=== PATIENT | female | born 1995 | race Caucasian/White ===

== ENCOUNTER 2016-11-16 23:10 | Emergency (ER) | payer MEDICAID, OTHER ==
[2016-11-17 00:27] LABS: ALT 8 U/L (7-52); AST 18 U/L (13-39); Albumin 3.8 g/dL (3.2-5.2); Alkaline Phosphatase 35 U/L (34-104); Anion Gap 4 mmol/L (2-11); BUN/Creatinine Ratio 8.7 (8-20); Blood Urea Nitrogen 6 mg/dL (6-24); CO2 Carbon Dioxide 23 mmol/L (22-32); Calcium 8.8 mg/dL (8.6-10.3); Chloride 107 mmol/L (101-111); EGFR African American 139.5 (>60); EGFR Non-African American 108.5 (>60); Globulin 3.4 g/dL (2-4); Glucose 92 mg/dL (70-100); Hematocrit 38 % (35-47); Hemoglobin 12.2 g/dl (12.0-16.0); Lipase 47 U/L (11.0-82.0); Mean Corpuscular HGB Conc 32 g/dl (31-36); Mean Corpuscular Hemoglobin 26 pg (27-31); Mean Corpuscular Volume 81 fL (80-97); Mean Platelet Volume 9 um3 (7.4-10.4); Potassium 3.8 mmol/L (3.5-5.0); Red Cell Distribution Width 16 % (10.5-15); Sodium 134 mmol/L (133-145); Total Protein 7.2 g/dL (6.4-8.9); White Blood Count 6.5 10^3/ul (3.5-10.8)
--- NOTE | 2016-11-17 01:03 | ED ---
GI/ HPI - HPI Summary HPI Summary: 21F presents with abdominal pain for two weeks. She states the pain comes and goes. She describes it as internal pain and possible from her uterus. She states she has been having intermittent vaginal bleeding. She states her last menstrual period was approximately 2 months ago. States she is on control and switched from the patch to the pill several weeks ago. States she had unprotected sex during her control change. She admits to occasionally nausea. She denies any v/d/c, fever, flank pain, frequency, urgency. She admits to occasionally dysuria. - History of Current Complaint Chief Complaint: EDAbdPain Time Seen by Provider: 11/16/16 23:19 Stated Complaint: ABD PAIN Pain Intensity: 8 - Allergy/Home Medications Allergies/Adverse Reactions: Allergies Allergy/AdvReac Type Severity Reaction Status Date / Time No Known Allergies Allergy Verified 01/14/16 15:17 PMH/Surg Hx/FS Hx/Imm Hx Endocrine/Hematology History: Denies: Hx Anticoagulant Therapy, Hx Diabetes, Hx Thyroid Disease Cardiovascular History: Denies: Hx Congestive Heart Failure, Hx Hypertension, Hx Pacemaker/ICD Respiratory History: Denies: Hx Asthma, Hx Chronic Obstructive Pulmonary Disease (COPD) GI History: Denies: Hx Ulcer History: Denies: Hx Dialysis, Hx Renal Disease Neurological History: Denies: Hx Dementia, Hx Seizures Psychiatric History: Reports: Hx Eating Disorder Denies: Hx Anxiety, Hx Depression, Hx Bipolar Disorder, Hx Substance Abuse Infectious Disease History: No Infectious Disease History: Reports: Hx of Known/Suspected MRSA Denies: Hx Hepatitis, Hx Human Immunodeficiency Virus (HIV), Traveled Outside the [place] in Last 30 Days - Family History Known Family History: Positive: None - Social History Alcohol Use: None Substance Use Type: Reports: None Substance Use Comment - Amount & Last Used: hx of marijuana Smoking Status (MU): Never Smoked Tobacco Have You Smoked in the Last Year: No Review of Systems Negative: Fever Negative: Chest Pain Negative: Shortness Of Breath Positive: Abdominal Pain, Nausea. Negative: Vomiting, Diarrhea Positive: dysuria. Negative: flank pain All Other Systems Reviewed And Are Negative: Yes Physical Exam Triage Information Reviewed: Yes Vital Signs On Initial Exam: Initial Vitals Temp Pulse Resp BP Pulse Ox 98.7 F 70 18 115/57 99 11/16/16 23:45 11/16/16 23:45 11/16/16 23:45 11/16/16 23:45 11/16/16 23:45 Vital Signs Reviewed: Yes Appearance: Positive: Well-Appearing Skin: Positive: Warm, Dry Head/Face: Positive: Normal Head/Face Inspection Eyes: Positive: Normal, Conjunctiva Clear ENT: Positive: Normal ENT inspection, Pharynx normal, TMs normal Respiratory/Lung Sounds: Positive: Clear to Auscultation, Breath Sounds Present Cardiovascular: Positive: Normal, RRR Abdomen Description: Positive: Soft, Other: - mild pelvic tenderness Bowel Sounds: Positive: Present - Bliss Coma Scale Coma Scale Total: 15 Diagnostics - Vital Signs Vital Signs Temp Pulse Resp BP Pulse Ox 11/16/16 23:45 98.7 F 70 18 115/57 99 - Laboratory Lab Results: Lab Results 11/17/16 11/17/16 Range/Units 00:01 00:01 WBC 6.5 (3.5-10.8) 10^3/ul RBC 4.70 (4.0-5.4) 10^6/ul Hgb 12.2 (12.0-16.0) g/dl Hct 38 (35-47) % MCV 81 (80-97) fL MCH 26 L (27-31) pg MCHC 32 (31-36) g/dl RDW 16 H (10.5-15) % Plt Count 255 (150-450) 10^3/ul MPV 9 (7.4-10.4) um3 Neut % (Auto) 52.4 (38-83) % Lymph % (Auto) 38.9 (25-47) % [place] % (Auto) 6.5 (1-9) % Eos % (Auto) 1.2 (0-6) % Baso % (Auto) 1.0 (0-2) % Absolute Neuts (auto) 3.4 (1.5-7.7) 10^3/ul Absolute Lymphs (auto) 2.5 (1.0-4.8) 10^3/ul Absolute Monos (auto) 0.4 (0-0.8) 10^3/ul Absolute Eos (auto) 0.1 (0-0.6) 10^3/ul Absolute Basos (auto) 0.1 (0-0.2) 10^3/ul Absolute Nucleated RBC 0.02 10^3/ul Nucleated RBC % 0.2 Sodium 134 (133-145) mmol/L Potassium 3.8 (3.5-5.0) mmol/L Chloride 107 (101-111) mmol/L Carbon Dioxide 23 (22-32) mmol/L Anion Gap 4 (2-11) mmol/L BUN 6 (6-24) mg/dL Creatinine 0.69 (0.51-0.95) mg/dL Est GFR ( Amer) 139.5 (>60) Est GFR (Non-Af Amer) 108.5 (>60) BUN/Creatinine Ratio 8.7 (8-20) Glucose 92 (70-100) mg/dL Calcium 8.8 (8.6-10.3) mg/dL Total Bilirubin 0.30 (0.2-1.0) mg/dL AST 18 (13-39) U/L ALT 8 (7-52) U/L Alkaline Phosphatase 35 (34-104) U/L C-React Prot High Sens 0.73 mg/L Total Protein 7.2 (6.4-8.9) g/dL Albumin 3.8 (3.2-5.2) g/dL Globulin 3.4 (2-4) g/dL Albumin/Globulin Ratio 1.1 (1-3) Lipase 47 (11.0-82.0) U/L Beta HCG, Quant < 0.60 mIU/mL Result Diagrams: 11/17/16 00:01 11/17/16 00:01 Lab Statement: Any lab studies that have been ordered have been reviewed, and results considered in the medical decision making process. - Ultrasound No standard instances Ultrasound Interpretation: No Acute Changes - normal apperance of uterus endometrium and both ovaries with normal vascular flow seen bilaterally Ultrasound Interpretation Completed By: Radiologist ULISES Course/Dx - Course Course Of Treatment: 21F presents with abdominal pain for two weeks. She states the pain comes and goes. She describes it as internal pain and possible from her uterus. She states she has been having intermittent vaginal bleeding. She states her last menstrual period was approximately 2 months ago. States she is on control and switched from the patch to the pill several weeks ago. States she had unprotected sex during her control change. She admits to occasionally nausea. She denies any v/d/c, fever, flank pain, frequency, urgency. She admits to occasionally dysuria. on exam she has mild pelvic tenderness. labs normal wbc and crp. HCG normal. u/s pelvic normal. no cause for pain except uti? u/a shows bacteria and wbc so due to dysuria symptoms will treat with macrobid for uti. patient understands and agrees with plan. - Diagnoses Differential Diagnoses - Female: Ovarian Cyst, Pyelonephritis, Urinary Tract Infection Provider Diagnoses: Abdominal pain, UTI (urinary tract infection) Discharge - Discharge Plan Condition: Good Disposition: HOME Prescriptions: Nitrofurantoin Monohyd Macro [Macrobid] 100 mg PO BID #13 cap Patient Education Materials: Urinary Tract Infection in Women (ED) Referrals: [facility] [place] [facility] REFERRAL [Outside] David Rockwell MD [Medical Doctor] - Additional Instructions: Take antibiotic twice a day for 7 days, first dose given in ED Take ibuprofen for pain every 6 hours as needed Establish care with primary and obgyn to follow up Return to ED if develop any new or worsening symptoms
[2016-11-17 01:04] LABS: Urine Bacteria 1+ (Absent); Urine Bilirubin Negative (Negative); Urine Glucose Negative (Negative); Urine Nitrite Negative (Negative)
[2016-11-17] MEDS ORDERED: Nitrofurantoin Macrocrystals* 100 MG CAP PO ONE (02:06)
[2016-11-17 02:28] VITALS: BP 122/74
--- NOTE | 2016-11-17 07:44 | RAD ---
HISTORY: Pelvic pain COMPARISONS: May 14, 2015 TECHNIQUE: Multiple transverse and longitudinal ultrasound images were obtained of the pelvis using grayscale and color Doppler imaging using the endovaginal transducer. FINDINGS: UTERUS: The uterus measures 7.8 x 4.2 x 4.8 cm. The uterus is normal in shape, size, contour, and echotexture. ENDOMETRIUM: The endometrial stripe is smooth. The endometrium measures 0.6 cm in thickness. CUL-DE-SAC: There is no free fluid within the cul-de-sac. RIGHT OVARY: The right ovary measures 1.6 x 1.5 x 2.5 cm. Normal arterial and venous waveforms are identifiable within the ovary on spectral Doppler imaging. LEFT OVARY: The left ovary measures 2.3 x 1.9 x 2 cm. Normal arterial and venous waveforms are identifiable within the ovary on spectral Doppler imaging. BLADDER: The bladder is not well visualized. IMPRESSION: UNREMARKABLE ULTRASOUND OF THE PELVIS. NO SONOGRAPHIC FEATURES OF TORSION. PLEASE NOTE THAT PARTIAL OR INTERMITTENT TORSION MAY BE SONOGRAPHICALLY NORMAL.
== END 2016-11-17 02:26 | disposition home or self-care (01) ==
LOC: ED 23:10
DX: N39.0 Urinary tract infection, site not specified (principal); R10.30 Lower abdominal pain, unspecified; Z32.02 Encounter for pregnancy test, result negative
CPT/HCPCS: 36415; 76830; 80053; 81003; 81015; 83690; 84702; 85025; 86141; 87086; 99282; A9270-GY

== ENCOUNTER 2017-04-05 11:46 | Emergency (ER) | payer OTHER ==
[2017-04-05 11:50] VITALS: BP 103/58
[2017-04-05 12:39] LABS: Urine Bacteria 2+ (Absent); Urine Bilirubin Negative (Negative); Urine Glucose Negative (Negative); Urine Nitrite Positive (Negative)
--- NOTE | 2017-04-05 13:00 | ED ---
GI/ HPI - HPI Summary HPI Summary: Pt here w/ intermittent sx x 1 month - worse past few days. Foul smelling urine and increased urination. Has a vaginal d/c but reports it's the same as always - denies vaginal irritation, vaginal pain, pain w/ wiping, etc. No ab pain, no flank pain. Denies fever, chills, N/V/D. H/o UTI. LMP this week - stopped control this month - states hasn't been really sexually active since. - History of Current Complaint Chief Complaint: EDUrogenitalProblems Time Seen by Provider: 04/05/17 12:42 Stated Complaint: POSSIBLE UTI Hx Obtained From: Patient, Family/Paperhanger Pipe - male partner, toddler daughter Pain Intensity: 0 - Allergy/Home Medications Allergies/Adverse Reactions: Allergies Allergy/AdvReac Type Severity Reaction Status Date / Time No Known Allergies Allergy Verified 01/14/16 15:17 PMH/Surg Hx/FS Hx/Imm Hx Previously Healthy: Yes Endocrine/Hematology History: Denies: Hx Anticoagulant Therapy, Hx Diabetes, Hx Thyroid Disease Cardiovascular History: Denies: Hx Congestive Heart Failure, Hx Hypertension, Hx Pacemaker/ICD Respiratory History: Denies: Hx Asthma, Hx Chronic Obstructive Pulmonary Disease (COPD) GI History: Reports: Hx Gastroesophageal Reflux Disease - "years ago" - no problems since Denies: Hx Ulcer History: Denies: Hx Dialysis, Hx Kidney Infection, Hx Kidney Stones, Hx Renal Disease Neurological History: Denies: Hx Dementia, Hx Seizures Psychiatric History: Reports: Hx Eating Disorder Denies: Hx Anxiety, Hx Depression, Hx Bipolar Disorder, Hx Substance Abuse - Immunization History Date of Tetanus Vaccine: unknown Date of Influenza Vaccine: NO Infectious Disease History: Yes Infectious Disease History: Reports: Hx of Known/Suspected MRSA Denies: Hx Hepatitis, Hx Human Immunodeficiency Virus (HIV), Traveled Outside the [place] in Last 30 Days - Family History Known Family History: Positive: None - Social History Occupation: Employed Full-time, Student Lives: With Family Alcohol Use: Rare Hx Substance Use: No Substance Use Type: Reports: None Substance Use Comment - Amount & Last Used: hx of marijuana Hx Tobacco Use: No Smoking Status (MU): Never Smoked Tobacco Have You Smoked in the Last Year: No Review of Systems Constitutional: Negative Negative: Fever, Chills, Fatigue Negative: Sore Throat Cardiovascular: Negative Negative: Palpitations, Chest Pain Respiratory: Negative Negative: Shortness Of Breath, Cough Gastrointestinal: Negative Negative: Abdominal Pain, Vomiting, Diarrhea, Nausea Positive: see HPI Musculoskeletal: Negative Skin: Negative Neurological: Negative Negative: Headache Psychological: Normal All Other Systems Reviewed And Are Negative: Yes Physical Exam Triage Information Reviewed: Yes Vital Signs On Initial Exam: Initial Vitals Temp Pulse Resp BP Pulse Ox 97.5 F 51 16 103/58 97 04/05/17 11:46 04/05/17 11:46 04/05/17 11:46 04/05/17 11:46 04/05/17 11:46 Vital Signs Reviewed: Yes Appearance: Positive: Well-Appearing, No Pain Distress, Well-Nourished Skin: Positive: Warm, Dry Head/Face: Positive: Normal Head/Face Inspection Eyes: Positive: Normal, EOMI, Conjunctiva Clear - anicteric sclera ENT: Positive: Normal ENT inspection, Hearing grossly normal, Pharynx normal - mucosa moist Neck: Positive: Supple Respiratory/Lung Sounds: Positive: Clear to Auscultation, Breath Sounds Present Cardiovascular: Positive: Normal, RRR, S1, S2 Abdomen Description: Positive: No Organomegaly, Soft, Other: - mild suprapubic TTP - triggers sensation to urinate. Negative: CVA Tenderness (R), CVA Tenderness (L) Bowel Sounds: Positive: Present Pelvic Exam: Positive: other - deferred Musculoskeletal: Positive: Normal, Strength/ROM Intact Neurological: Positive: Normal, Sensory/Motor Intact, Alert, Oriented to Person Place, Time, CN Intact II-III Psychiatric: Positive: Normal - James Coma Scale Coma Scale Total: 15 Diagnostics - Vital Signs Vital Signs Temp Pulse Resp BP Pulse Ox 04/05/17 11:46 97.5 F 51 16 103/58 97 - Laboratory Lab Results: Lab Results 04/05/17 Range/Units 12:15 Urine Color Yellow Urine Appearance Cloudy Urine pH 5.0 (5-9) Ur Specific Stout 1.019 (1.010-1.030) Urine Protein Negative (Negative) Urine Ketones Negative (Negative) Urine Blood 1+ H (Negative) Urine Nitrate Positive H (Negative) Urine Bilirubin Negative (Negative) Urine Urobilinogen Negative (Negative) Ur Leukocyte Esterase Trace H (Negative) Urine WBC (Auto) 1+(6-10/hpf) H (Absent) Urine RBC (Auto) Trace(0-2/hpf) (Absent) Urine Bacteria 2+ H (Absent) Urine Glucose Negative (Negative) Lab Statement: Any lab studies that have been ordered have been reviewed, and results considered in the medical decision making process. GIGU Course/Dx - Course Course Of Treatment: Pt presents w/ S/SX of UTI - U/A correlates. If pt's sx do not improve, explained she needs f/u and possibly pelvic exam as this is in diff today. - Diagnoses Provider Diagnoses: UTI (urinary tract infection) Discharge - Discharge Plan Condition: Stable Disposition: HOME Prescriptions: Cephalexin CAP* [Keflex CAP*] 500 mg PO BID #14 cap Patient Education Materials: Urinary Tract Infection in Women (ED) Forms: *Work Release Referrals: [facility] [place] [Outside] No Primary Care Phys,NOPCP [Primary Care Provider] - Additional Instructions: Drink plenty of water Urinate with urge - do not hold urine Urinate after intercourse *If symptoms persist or worsen despite medications or you develop fever, chills , nausea, vomiting, abdominal pain, back pain, vaginal discharge, return to ED
--- NOTE | 2017-04-07 20:28 | PN ---
Progress Note - Progress Note Date of Service: 04/07/17 Note: Patient urine culture grew E coli >100,000. patient placed on keflex which is sensitive to.
--- NOTE | 2017-04-08 12:19 | ED ---
Progress - Progress Note Progress Note: Pt's final urine cx reveals sens to keflex which pt is taking. No change at this time. Course/Dx - Course Course Of Treatment: Pt presents w/ S/SX of UTI - U/A correlates. If pt's sx do not improve, explained she needs f/u and possibly pelvic exam as this is in diff today. - Diagnoses Provider Diagnoses: UTI (urinary tract infection)
== END 2017-04-05 13:05 | disposition home or self-care (01) ==
LOC: ED 11:46
DX: N39.0 Urinary tract infection, site not specified (principal)
CPT/HCPCS: 81003; 81015; 87077; 87086; 87186; 99281

== ENCOUNTER 2017-10-11 06:31 | Emergency (ER) | payer OTHER ==
[2017-10-11] MEDS ORDERED: Simethicone TAB* 80 MG TAB.CHEW PO ONE (08:26)
[2017-10-11 08:30] LABS: ABS Basophils 0 10^3/ul (0-0.2); ABS Eosinophils 0 10^3/ul (0-0.6); ABS Lymphocytes 1.5 10^3/ul (1.0-4.8); ABS Monocytes 0.4 10^3/ul (0-0.8); ABS Neutrophils 5.6 10^3/ul (1.5-7.7); ABS Nucleated RBC 0 10^3/ul; Eosinophil % 0.6 % (0-6); Hematocrit 35 % (35-47); Hemoglobin 11.6 g/dl (12.0-16.0); Lymphocyte % 19.5 % (25-47); Mean Corpuscular HGB Conc 33 g/dl (31-36); Mean Corpuscular Hemoglobin 28 pg (27-31); Mean Corpuscular Volume 82 fL (80-97); Mean Platelet Volume 8.1 um3 (7.4-10.4); Nucleated Red Blood Cells % 0.1; Platelet Count 205 10^3/ul (150-450); Red Blood Count 4.21 10^6/ul (4.00-5.40); Red Cell Distribution Width 15 % (10.5-15); White Blood Count 7.5 10^3/ul (3.5-10.8)
[2017-10-11 08:35] LABS: INR 1.04 (0.77-1.02)
[2017-10-11 08:47] LABS: EGFR Non-African American 187.2 (>60)
--- NOTE | 2017-10-11 08:49 | ED ---
Abdominal Pain/Female - HPI Summary HPI Summary: (1 , 1 miscarriage, 1 live) pt presents w/ lower pelvic cramping and "gas pain". Worse in the central and LLQ regions. She's had this over the past few days and can't flatulate on demand so came in to get checked out. She has relief when she can pass gas. Last BM was Thursday - h/o constipation. Has been eating lots of fruits and vegetables and drinking plenty of water per patient. She is not taking any stool softeners. Also reports she has had some issues with her hemorrhoids. She got these with her first and they are bothering her again with this . She has not tried anything for hemorrhoids. She denies fever, chills, headache, chest pain, shortness of breath, nausea, vomiting, diarrhea, vaginal spotting or bleeding, vaginal pain/ irritation/discharge, urinary frequency/urgency/flank pain/dysuria. She does not feel like she's having any contractions. She is 12 weeks and reports she had an ultrasound 2 weeks ago with [facility] and was told she has a viable . SHe is not taking a vitamin as she was vomiting up until last week - no vomiting since - eating and drinking well. - History of Current Complaint Chief Complaint: EDOBProblems Stated Complaint: 12 WEEKS PREG/CRAMPING Time Seen by Provider: 10/11/17 06:43 Hx Obtained From: Patient, Family/Acquisition Lead - mom Pain Intensity: 7 Allergies/Adverse Reactions: Allergies Allergy/AdvReac Type Severity Reaction Status Date / Time No Known Allergies Allergy Verified 10/11/17 06:36 PMH/Surg Hx/FS Hx/Imm Hx Previously Healthy: Yes Endocrine/Hematology History: Denies: Hx Anticoagulant Therapy, Hx Diabetes, Hx Thyroid Disease Cardiovascular History: Denies: Hx Congestive Heart Failure, Hx Hypertension, Hx Pacemaker/ICD Respiratory History: Denies: Hx Asthma, Hx Chronic Obstructive Pulmonary Disease (COPD) GI History: Reports: Hx Gastroesophageal Reflux Disease - "years ago" - no problems since, Other GI Disorders - hemorrhoids Denies: Hx Ulcer History: Denies: Hx Dialysis, Hx Kidney Infection, Hx Kidney Stones, Hx Renal Disease Neurological History: Denies: Hx Dementia, Hx Seizures Psychiatric History: Reports: Hx Eating Disorder Denies: Hx Anxiety, Hx Depression, Hx Bipolar Disorder, Hx Substance Abuse - Immunization History Date of Tetanus Vaccine: unknown Date of Influenza Vaccine: NO Infectious Disease History: No Infectious Disease History: Reports: Hx of Known/Suspected MRSA Denies: Hx Hepatitis, Hx Human Immunodeficiency Virus (HIV), Traveled Outside the [place] in Last 30 Days - Family History Known Family History: Positive: None - Social History Lives: With Family Alcohol Use: None Hx Substance Use: No Substance Use Type: Reports: None Substance Use Comment - Amount & Last Used: hx of marijuana Hx Tobacco Use: No Smoking Status (MU): Never Smoked Tobacco Have You Smoked in the Last Year: No Review of Systems Constitutional: Negative Cardiovascular: Negative Respiratory: Negative Positive: Abdominal Pain Positive: see HPI Musculoskeletal: Negative Skin: Negative Neurological: Negative Psychological: Normal All Other Systems Reviewed And Are Negative: Yes Physical Exam Triage Information Reviewed: Yes Vital Signs On Initial Exam: Initial Vitals Temp Pulse Resp BP Pulse Ox 98.0 F 64 15 109/64 100 10/11/17 06:33 10/11/17 06:33 10/11/17 06:33 10/11/17 06:33 10/11/17 06:33 Vital Signs Reviewed: Yes Appearance: Positive: Well-Appearing, No Pain Distress, Well-Nourished Skin: Positive: Warm, Skin Color Reflects Adequate Perfusion, Dry Head/Face: Positive: Normal Head/Face Inspection Eyes: Positive: Normal, EOMI, Conjunctiva Clear ENT: Positive: Normal ENT inspection, Hearing grossly normal, Pharynx normal - mucosa moist Neck: Positive: Supple Respiratory/Lung Sounds: Positive: Clear to Auscultation, Breath Sounds Present. Negative: Rales, Rhonchi, Wheezes Cardiovascular: Positive: Normal, RRR, Pulses are Symmetrical in both Upper and Lower Extremities, S1, S2. Negative: Murmur, Rub Abdomen Description: Positive: No Organomegaly, Soft, Distended - ab, Other: - mild TTP over general ab - worse in LLQ - no rebounding. Negative: CVA Tenderness (R), CVA Tenderness (L) Bowel Sounds: Positive: Present, Hyperactive Pelvic Exam: Positive: Other - deferred Musculoskeletal: Positive: Normal, Strength/ROM Intact Neurological: Positive: Normal, Sensory/Motor Intact, Alert, Oriented to Person Place, Time, CN Intact II-III Psychiatric: Positive: Normal Diagnostics - Vital Signs Vital Signs Temp Pulse Resp BP Pulse Ox 10/11/17 06:33 98.0 F 64 15 109/64 100 - Laboratory Lab Results: Lab Results 10/11/17 10/11/17 Range/Units 08:09 08:09 WBC 7.5 (3.5-10.8) 10^3/ul RBC 4.21 (4.00-5.40) 10^6/ul Hgb 11.6 L (12.0-16.0) g/dl Hct 35 (35-47) % MCV 82 (80-97) fL MCH 28 (27-31) pg MCHC 33 (31-36) g/dl RDW 15 (10.5-15) % Plt Count 205 (150-450) 10^3/ul MPV 8.1 (7.4-10.4) um3 Neut % (Auto) 73.8 (38-83) % Lymph % (Auto) 19.5 L (25-47) % [place] % (Auto) 5.8 (0-7) % Eos % (Auto) 0.6 (0-6) % Baso % (Auto) 0.3 (0-2) % Absolute Neuts (auto) 5.6 (1.5-7.7) 10^3/ul Absolute Lymphs (auto) 1.5 (1.0-4.8) 10^3/ul Absolute Monos (auto) 0.4 (0-0.8) 10^3/ul Absolute Eos (auto) 0 (0-0.6) 10^3/ul Absolute Basos (auto) 0 (0-0.2) 10^3/ul Absolute Nucleated RBC 0 10^3/ul Nucleated RBC % 0.1 INR (Anticoag Therapy) 1.04 H (0.77-1.02) Result Diagrams: 10/11/17 08:09 10/11/17 08:09 Lab Statement: Any lab studies that have been ordered have been reviewed, and results considered in the medical decision making process. Abdominal Pain Fem Course/Dx - Course Course Of Treatment: Pt presents w/ "gas pain" at 12 weeks of . Denies any danger signs or symptoms of miscarriage such as spotting, vaginal bleeding, symptoms of contractions however with cramping and left lower quadrant pain, labs and an ultrasound were ordered. Before these tests could be completed, patient reports she is ready to leave. She was given simethicone and told if this helps her gas pain she may continue to take an over-the- counter. Also reviewed options for treating her hemorrhoid such as sitz bath and witch fabrizio wipes. Also encouraged she continued to eat a high-fiber diet however she may also try stool softeners such as Colace to reduce her risk of constipation. Explained that without doing tests we cannot say definitively what could be causing her symptoms or that it safe for her to go home. Patient understands this risk and decides she would like to leave anyway. Her vital signs are stable and she appears comfortable. She initially requested an HIV test but reports she had one 2 weeks ago at her [facility] office and was negative. Explained it is too soon to retest however she should retested 3 months if she has a concern about exposure to HIV. UPDATE: pt's FHR was unattainable by bedside U/S. She became scared and agreed to get U/S - this reveals FHR 149 and normal IUP based on level of testing. Labs correlate w/ findings. Went to pt's room to provide results and she had left. - Diagnoses Provider Diagnoses: Pelvic cramping, Discharge - Sign-Out/Discharge Documenting (check all that apply): Discharge/Admit/Transfer - Discharge Plan Condition: Stable Disposition: HOME Patient Education Materials: Simethicone (By mouth), (ED), Hemorrhoids (ED), Pelvic Pain in Women (ED) Referrals: Betzaida Rodriguez MD [Medical Doctor] - Additional Instructions: The cause of your pain is most likely gas in your bowels that is trapped and causing discomfort. You may try simethicone [id number] (also known as "gas-x") if this helped you today. It is important that if your pain returns or worsens return to the emergency department. If you develop cramping/contractions/vaginal bleeding, contact your [facility] or return to the ED. For your hemorrhoids, it is advised that you try witch fabrizio wipes, stool softeners and sitz baths. Using additional medications could be harmful to the baby - it is important that you avoid anything beyond these recommendations. See handout for additional lifestyle support care. It is also encouraged that you start taking a vitamin since you no longer have vomiting/morning sickness. This will help the development of her growing baby. These may be purchased [id number] or prescribed to your OB/ [facility] if you cannot afford them. - Billing Disposition and Condition Condition: STABLE Disposition: Home
--- NOTE | 2017-10-11 10:12 | RAD ---
HISTORY: lower pelvic cramping, LLQ pain COMPARISONS: None TECHNIQUE: Multiple transverse and longitudinal ultrasound images were obtained of the pelvis using grayscale, color Doppler, and M-Mode Doppler imaging using the transabdominal transducer. FINDINGS: UTERUS: The uterus is normal in shape, size, contour, and echotexture. GESTATION: There is a single live intrauterine gestation. The crown-rump length measures 5.57 cm for a gestational age of 12 weeks, 2 days. The BRANDON is April 23, 2018. cardiac motion is detected at a rate of 149 beats per minute. Gross movement is identified. anatomy cannot be assessed secondary to early dates. The amniotic fluid is qualitatively normal. There is a subchorionic fluid collection measuring approximately 0.8 x 1.8 x 1.7 cm in size. CUL-DE-SAC: There is no free fluid within the cul-de-sac. RIGHT OVARY: The right ovary measures 2.2 x 1.4 x 3.1 cm. LEFT OVARY: The left ovary measures 3 x 1.4 x 3 cm. BLADDER: The visualized bladder is unremarkable. IMPRESSION: 1. SINGLE LIVE INTRAUTERINE GESTATION AT 12 WEEKS, 2 DAYS BY CROWN-RUMP LENGTH. 2. 1.8 CM SUBCHORIONIC HEMORRHAGE.
[2017-10-11 10:39] VITALS: BP 120/76
== END 2017-10-11 10:38 | disposition home or self-care (01) ==
LOC: ED 06:31
DX: O26.891 Other specified pregnancy related conditions, first trimester (principal); O20.9 Hemorrhage in early pregnancy, unspecified; R10.32 Left lower quadrant pain; Z3A.12 12 weeks gestation of pregnancy
CPT/HCPCS: 36415; 76801; 80053; 83690; 84702; 85025; 85610; 99282; A9270-GY

== ENCOUNTER 2017-11-23 13:46 | Emergency (ER) | payer OTHER ==
[2017-11-23 13:54] VITALS: BP 105/62
--- NOTE | 2017-11-23 14:00 | UC ---
Abdominal Pain Female HPI - HPI Summary HPI Summary: This is licha De Santiago documenting for attending Tereza Sewell MD. This patient is a 22 year old F presenting to [facility] accompanied by her mother and step father with a chief complaint of LLQ pain for the last three days. She is currently 18 weeks . The patient rates the pain 8/10 in severity. Pt took OTC Motrin two days ago and has used heat/cold without relief. No vaginal discharge, dysuria, hematuria. She states the pain is worse when she ambulates. Patient reports SALOMON x 2 days.. Patient denies n/v, fever, hematuria, vaginal discharge, dysuria, and abnormal BM. Pt states she did have some blood in her stool yesterday but she has hemorrhoids. Pt states she has "bleeding by placenta." Pt noted to have am ovarian cyst - unsure what size Patients medication reviewed this visit - has vitamins - not taking. - History of Current Complaint Chief Complaint: UCAbdominalPain Stated Complaint: ABD PAIN Time Seen by Provider: 11/23/17 13:52 Hx Obtained From: Patient Onset/Duration: Lasting Days, Still Present Severity Initially: Severe Severity Currently: Severe Pain Intensity: 8 Pain Scale Used: 0-10 Numeric Location: Discrete At: LLQ Radiates: No Aggravating Factor(s): Movement - walking Associated Signs and Symptoms: Positive: Negative - n/v, fever, hematuria, vaginal discharge, dysuria, and abnormal BM., Other: - salomon Allergies/Adverse Reactions: Allergies Allergy/AdvReac Type Severity Reaction Status Date / Time No Known Allergies Allergy Verified 11/23/17 13:54 PMH/Surg Hx/FS Hx/Imm Hx Previously Healthy: Yes Cardiovascular History: Other Other Cardiovascular History: Gastritis GI/ History: Other Other GI/ History: Miscarriage Other History Of: Negative For: Hepatitis B, Anticoagulant Therapy - Surgical History Surgical History: None - Family History Known Family History: Positive: None Negative: Diabetes, Renal Disease, Respiratory Disease, Seizure Disorder, Blood Disorder - Social History Occupation: Employed Full-time - intermediate Lives: With Family Alcohol Use: None Substance Use Type: None Substance Use Comment - Amount & Last Used: hx of marijuana Smoking Status (MU): Never Smoked Tobacco Have You Smoked in the Last Year: No Household Exposure Type: Cigarettes Review of Systems Gastrointestinal: Abdominal Pain Neurological: Headache All Other Systems Reviewed And Are Negative: Yes Physical Exam - Summary Physical Exam Summary: Vital Signs Reviewed: Yes A+Ox3, mild discomfort with ambulation, stepping up onto exam table Eyes: Conjunctiva Clear, DANIELA. EOM intact and full ENT: Hearing grossly normal TM x 2 clear, mmoist, uvula midline, no exudate, no erythema Neck: Positive: Supple Respiratory: Positive: No respiratory distress, No accessory muscle use + CTA throughout no w/r Cardiovascular: RRR nl s1, s2 no m/r CBT <2 sec abd gravid soft +/decrease BS nondistended + TTP RLQ mild LLQ Musculoskeletal Exam: VASQUEZ x 4 without difficulty Strength Intact, ROM Intact RLQ increases with right leg elevation Neurological: Positive: Alert, + sensation throughout Psychological: Positive: Normal Response To Family Skin: Positive: no rash, no ecchymosis Triage Information Reviewed: Yes Vital Signs: Initial Vital Signs Temp 98.2 F 11/23/17 13:51 Pulse 66 11/23/17 13:51 Resp 16 11/23/17 13:51 BP 105/62 11/23/17 13:51 Pulse Ox 100 11/23/17 13:51 Abd Pain Female Course/Dx - Course Course Of Treatment: Patient presents emergency Department with 3 days of progressive lower abdominal pain. Patient's 18 weeks . Patient states she is a little bit of nausea. Patient states pain is worse with movement and ambulation. Patient took Motrin yesterday without relief. Patient did not call her [employer] [employer] [employer] [employer] providers. Patient states she's been UC does not recall for pain. Patient has discomfort right or left lower quadrant. Patient states she does have an ovarian cyst as well as "bleeding by my placenta." Discussed with patient differential. Patient with 1+ leuks in her urine. Recommended patient to emergency department for further evaluation and treatment. Patient and family comfortable and in agreement plan - Differential Dx/Diagnosis Provider Diagnoses: lower quadrant abdominal pain in Discharge - Sign-Out/Discharge Documenting (check all that apply): Patient Departure - Discharge Plan Condition: Stable Disposition: HOME Patient Education Materials: Abdominal Pain in (ED) Forms: *Work Release Referrals: No Primary Care Phys,NOPCP [Primary Care Provider] - Additional Instructions: The doctor that evaluated you recommends you go directly to the emergency department at [facility]. You may require additional testing and evaluation of your abdomen and to determine the cause of your discomfort . The emergency department has been notified you have been referred to them for further treatment. - Billing Disposition and Condition Condition: STABLE Disposition: Home
[2017-11-23] MEDS ORDERED: Acetaminophen TAB* 325 MG PO ONE (14:17)
== END 2017-11-23 14:25 | disposition home or self-care (01) ==
LOC: UCEAST 13:46
DX: O26.892 Other specified pregnancy related conditions, second trimester (principal); O34.82 Maternal care for other abnormalities of pelvic organs, second trimester; R10.30 Lower abdominal pain, unspecified; R11.0 Nausea; N83.209 Unspecified ovarian cyst, unspecified side; Z3A.18 18 weeks gestation of pregnancy
CPT/HCPCS: 81003; 87086; 99212; A9270-GY; G0463

== ENCOUNTER 2017-12-07 17:00 | Emergency (ER) | payer OTHER ==
--- NOTE | 2017-12-07 18:44 | ED ---
Abdominal Pain/Female - HPI Summary HPI Summary: This is scribe Kaden Martin documenting for attending Husam Davis MD. This patient is a 22 year old F presenting to [facility] with a chief complaint of abdominal pain since 03:00 today. She is . Patient reports vomiting yesterday, nausea yesterday, mild cramping, and abdominal pressure. At 16:35 today she went to the bathroom and noted mucous mixed with blood coming out of her vagina. She is 21 weeks . Her LNMP was 07/15/2017. She has no PMHx of PSHx. I, Dr. Davis, personally performed the services described in this documentation as scribed in my presence, and it is both accurate and complete. - History of Current Complaint Chief Complaint: EDOBProblems Stated Complaint: 5MTHS PREG/DISCHARGE Time Seen by Provider: 12/07/17 18:20 Hx Obtained From: Patient Onset/Duration: Sudden Onset, Lasting Hours - Since 03:00 today., Still Present Timing: Constant Severity Initially: Mild Severity Currently: Mild Pain Intensity: 0 Pain Scale Used: 0-10 Numeric Aggravating Factor(s): Nothing Alleviating Factor(s): Nothing Associated Signs and Symptoms: Positive: Vaginal Bleeding - Mucous mixed with blood coming out of vagina 16:35 today., Nausea - yesterday, Vomiting - yesterday, Other: - Mild abdominal cramping, abdominal pressure Allergies/Adverse Reactions: Allergies Allergy/AdvReac Type Severity Reaction Status Date / Time No Known Allergies Allergy Verified 12/07/17 17:15 PMH/Surg Hx/FS Hx/Imm Hx Endocrine/Hematology History: Denies: Hx Anticoagulant Therapy, Hx Diabetes, Hx Thyroid Disease Cardiovascular History: Denies: Hx Congestive Heart Failure, Hx Hypertension, Hx Pacemaker/ICD Respiratory History: Denies: Hx Asthma, Hx Chronic Obstructive Pulmonary Disease (COPD) GI History: Reports: Hx Gastroesophageal Reflux Disease - "years ago" - no problems since, Other GI Disorders - hemorrhoids Denies: Hx Ulcer History: Denies: Hx Dialysis, Hx Kidney Infection, Hx Kidney Stones, Hx Renal Disease Neurological History: Denies: Hx Dementia, Hx Seizures Psychiatric History: Reports: Hx Eating Disorder Denies: Hx Anxiety, Hx Depression, Hx Bipolar Disorder, Hx Substance Abuse - Immunization History Date of Tetanus Vaccine: unknown Date of Influenza Vaccine: NO Infectious Disease History: No Infectious Disease History: Reports: Hx of Known/Suspected MRSA Denies: Hx Hepatitis, Hx Human Immunodeficiency Virus (HIV), Traveled Outside the [place] in Last 30 Days - Family History Known Family History: Negative: Diabetes, Renal Disease, Respiratory Disease, Seizure Disorder, Blood Disorder - Social History Occupation: Student Alcohol Use: None Hx Substance Use: No Substance Use Type: Reports: None Substance Use Comment - Amount & Last Used: hx of marijuana Hx Tobacco Use: No Smoking Status (MU): Never Smoked Tobacco Have You Smoked in the Last Year: No Review of Systems Negative: Fever Positive: Abdominal Pain, Vomiting - Yesterday, Nausea - Yesterday, Other - Abdominal pressure, mild abdominal cramping Positive: other - Mucous mixed with blood coming out of her vagina at 16:35 All Other Systems Reviewed And Are Negative: Yes Physical Exam - Summary Physical Exam Summary: VITAL SIGNS: Reviewed. GENERAL: Patient is a well-developed and nourished (MALE OR FEMALE) who is lying comfortable in the stretcher. Patient is not in any acute respiratory distress. HEAD AND FACE: No signs of trauma. No ecchymosis, hematomas or skull depressions. No sinus tenderness. EYES: PERRLA, EOMI x 2, No injected conjunctiva, no nystagmus. EARS: Hearing grossly intact. Ear canals and tympanic membranes are within normal limits. MOUTH: Oropharynx within normal limits. NECK: Supple, trachea is midline, no adenopathy, no JVD, no carotid bruit, no c- spine tenderness, neck with full ROM. CHEST: Symmetric, no tenderness at palpation LUNGS: Clear to auscultation bilaterally. No wheezing or crackles. CVS: Regular rate and rhythm, S1 and S2 present, no murmurs or gallops appreciated. ABDOMEN: Soft, non-tender. Abdominal distention about the umbilical, consistent with 21 week . No rebound no guarding, and no masses palpated. Bowel sounds are normal. EXTREMITIES: FROM in all major joints, no edema, no cyanosis or clubbing. GENITOURINARY: Vaginal dunlap are normal, no lesions. Some white, cheesy discharge. Cervic is closed, no CMT. NEURO: Alert and oriented x 3. No acute neurological deficits. Speech is normal and follows commands. SKIN: Dry and warm Triage Information Reviewed: Yes Vital Signs On Initial Exam: Initial Vitals Temp Pulse Resp BP Pulse Ox 98.5 F 70 16 123/70 100 12/07/17 17:10 12/07/17 17:10 12/07/17 17:10 12/07/17 17:10 12/07/17 17:10 Vital Signs Reviewed: Yes Diagnostics - Vital Signs Vital Signs Temp Pulse Resp BP Pulse Ox 12/07/17 17:10 98.5 F 70 16 123/70 100 - Laboratory Lab Statement: Any lab studies that have been ordered have been reviewed, and results considered in the medical decision making process. Abdominal Pain Fem Course/Dx - Course Course Of Treatment: This patient is a 22-year-old female who presents to the emergency department with a chief complaint of having some abdominal cramping. She reports that she is 21 weeks , she is . She reports that this morning approximately 03:00 in the morning she developed some abdominal cramping which lasted for a couple minutes and resolved. Today in the afternoon she passed this white discharge when she went to the bathroom. The patient contacted Dr. Feldman from [facility] and she recommended to come to the emergency department for the assessment. In the physical exam the patient has these white cheesy discharge and she also reports that she was given oral antibiotics for her yeast. The external genitalia are within normal limits, the cervix is closed and has these white cheesy discharge. There is no blood seen. At this time I discussed my physical exam, findings and test results with Dr. Glass who believes that the patient is not having any type of miscarriage she believes that she has a yeast infection therefore she recommends for the patient to be given Diflucan 150 mg now and given a prescription for 1 tablet to take in 72 hours. She recommends no blood work and she doesnt recommend a pelvic ultrasound. I discussed all the findings and test results with the patient. Patient was instructed to return to the emergency room immediately if any of the symptoms return or worsens. Plan of care was discussed with the patient and understands and agrees. All questions were answered at patient satisfaction. There were no further complaints or concerns. Lung exam before discharge: CTA B/L. Good air exchange. No wheezing or crackles heard. CVS: S1 and S2 present. No murmurs appreciated. Patient is alert and oriented x 3. Patient is hemodynamically stable. Patient will be discharged home with follow up PCP in the next 2-3 days. FHR 150 - Diagnoses Provider Diagnoses: Vaginal candidiasis - Provider Notifications Discussed Care Of Patient With: Yessi Feldman - [facility] Time Discussed With Above Provider: 18:33 Instructed by Provider To: Other - Treat with ibuprofin for a yeast infection. Discharge - Sign-Out/Discharge Documenting (check all that apply): Patient Departure - Discharge Plan Condition: Stable Disposition: HOME Prescriptions: Fluconazole 150 MG (NF) [Diflucan 150 mg (NF)] 150 mg PO ONCE #1 tab Patient Education Materials: Yeast Infection (ED) Referrals: No Primary Care Phys,NOPCP [Primary Care Provider] - (Follow up with [facility] within 2-3 days.) Additional Instructions: RETURN TO THE ED FOR ANY WORSENING OR NEW SYMPTOMS
[2017-12-07] MEDS ORDERED: Fluconazole 150 MG (NF) 150 MG TAB PO ONE (19:32)
[2017-12-07 20:38] VITALS: BP 119/60
== END 2017-12-07 20:36 | disposition home or self-care (01) ==
LOC: ED 17:00
DX: O98.812 Other maternal infectious and parasitic diseases complicating pregnancy, second trimester (principal); Z3A.21 21 weeks gestation of pregnancy
CPT/HCPCS: 99282

== ENCOUNTER 2018-03-06 22:30 | Emergency (ER) | payer OTHER ==
[2018-03-06 23:27] LABS: Urine Appearance Clear; Urine Blood Negative (Negative); Urine Color Yellow; Urine Ketones Negative (Negative); Urine Protein Negative (Negative); Urine Specific Gravity 1.008 (1.010-1.030); Urine Urobilinogen Negative (Negative)
--- NOTE | 2018-03-06 23:33 | ED ---
Back Pain - HPI Summary HPI Summary: Pt is a 22 year old F presenting to the ED with a chief complaint of back pain. The pt is on her second , 33 wks in. The back pain is horrible and on her R side, onset 2 weeks ago but worse for the last two days. The severity is intermittent. The pt has no hx of back issues, denies nausea or vomiting, and does not take any medications. The pt does not have vaginal bleeding, her baby is kicking, and she last saw her lettuce trimmer 2 months ago. She is also urinating ok. She denied any pain medications. - History of Current Complaint Chief Complaint: EDBackInjuryPain Stated Complaint: 33 WKS PREG/BACK PAIN Time Seen by Provider: 03/06/18 23:08 Hx Obtained From: Patient Onset/Duration: Gradual Onset, Lasting Weeks, Still Present, Worse Since - 2 days ago Onset/Duration: Started Weeks Ago, Still Present, Worse Since - 2 days ago Timing: Constant, Lasting Weeks Back Pain Location: Is Discrete @ - R lower back Severity Initially: Mild Severity Currently: Severe Pain Intensity: 10 Pain Scale Used: 0-10 Numeric Character: Sharp Aggravating Symptom(s): Movement Alleviating Symptom(s): Rest - Allergies/Home Medications Allergies/Adverse Reactions: Allergies Allergy/AdvReac Type Severity Reaction Status Date / Time No Known Allergies Allergy Verified 03/06/18 22:38 PMH/Surg Hx/FS Hx/Imm Hx Previously Healthy: Yes Endocrine/Hematology History: Denies: Hx Anticoagulant Therapy, Hx Diabetes, Hx Thyroid Disease Cardiovascular History: Denies: Hx Congestive Heart Failure, Hx Hypertension, Hx Pacemaker/ICD Respiratory History: Denies: Hx Asthma, Hx Chronic Obstructive Pulmonary Disease (COPD) GI History: Reports: Hx Gastroesophageal Reflux Disease - "years ago" - no problems since, Other GI Disorders - hemorrhoids Denies: Hx Ulcer History: Denies: Hx Dialysis, Hx Kidney Infection, Hx Kidney Stones, Hx Renal Disease Neurological History: Denies: Hx Dementia, Hx Seizures Psychiatric History: Reports: Hx Eating Disorder Denies: Hx Anxiety, Hx Depression, Hx Bipolar Disorder, Hx Substance Abuse - Immunization History Date of Tetanus Vaccine: unknown Date of Influenza Vaccine: NO Infectious Disease History: Yes Infectious Disease History: Reports: Hx of Known/Suspected MRSA Denies: Hx Hepatitis, Hx Human Immunodeficiency Virus (HIV), Traveled Outside the [place] in Last 30 Days - Family History Known Family History: Negative: Diabetes, Renal Disease, Respiratory Disease, Seizure Disorder, Blood Disorder - Social History Alcohol Use: None Hx Substance Use: No Substance Use Type: Reports: None Substance Use Comment - Amount & Last Used: hx of marijuana Hx Tobacco Use: No Smoking Status (MU): Never Smoked Tobacco Have You Smoked in the Last Year: No Review of Systems Negative: Fever Positive: Myalgia - lower R back pain All Other Systems Reviewed And Are Negative: Yes Physical Exam - Summary Physical Exam Summary: VITAL SIGNS: Reviewed. GENERAL: Patient is a well-developed and nourished female who is lying comfortable in the stretcher. Patient is not in any acute respiratory distress. HEAD AND FACE: No signs of trauma. No ecchymosis, hematomas or skull depressions. No sinus tenderness. EYES: PERRLA, EOMI x 2, No injected conjunctiva, no nystagmus. EARS: Hearing grossly intact. Ear canals and tympanic membranes are within normal limits. MOUTH: Oropharynx within normal limits. NECK: Supple, trachea is midline, no adenopathy, no JVD, no carotid bruit, no c- spine tenderness, neck with full ROM. CHEST: Symmetric, no tenderness at palpation LUNGS: Clear to auscultation bilaterally. No wheezing or crackles. CVS: Regular rate and rhythm, S1 and S2 present, no murmurs or gallops appreciated. ABDOMEN: Soft, non-tender. No signs of distention. No rebound no guarding, and no masses palpated. Bowel sounds are normal. Fundal 32 weeks. EXTREMITIES: FROM in all major joints, no edema, no cyanosis or clubbing. Bilateral straight leg test negative. NEURO: Alert and oriented x 3. No acute neurological deficits. Speech is normal and follows commands. SKIN: Dry and warm Triage Information Reviewed: Yes Vital Signs On Initial Exam: Initial Vitals Temp Pulse Resp BP Pulse Ox 98.5 F 70 16 124/60 100 03/06/18 22:32 03/06/18 22:32 03/06/18 22:32 03/06/18 22:32 03/06/18 22:32 Vital Signs Reviewed: Yes Diagnostics - Vital Signs Vital Signs Temp Pulse Resp BP Pulse Ox 03/06/18 22:32 98.5 F 70 16 124/60 100 - Laboratory Lab Results: Lab Results 03/06/18 Range/Units 22:50 Urine Color Yellow Urine Appearance Clear Urine pH 7.0 (5-9) Ur Specific [place] 1.008 L (1.010-1.030) Urine Protein Negative (Negative) Urine Ketones Negative (Negative) Urine Blood Negative (Negative) Urine Nitrate Negative (Negative) Urine Bilirubin Negative (Negative) Urine Urobilinogen Negative (Negative) Ur Leukocyte Esterase Negative (Negative) Urine Glucose Negative (Negative) Urine Ascorbic Acid * A (Negative) Result Diagrams: 03/06/18 23:37 03/06/18 23:37 Lab Statement: Any lab studies that have been ordered have been reviewed, and results considered in the medical decision making process. - Ultrasound No standard instances Ultrasound Interpretation Completed By: Radiologist Summary of Ultrasound Findings: Normal bilateral renal ultrasound. ED physician has reviewed this report. Back Pain Course/Dx - Course Course Of Treatment: Pt is a 22 y/o F presenting to the ED with a chief complaint of back pain. She is 32 weeks and is having a normal . The severity is intermittent, she is concerned it is kidney stones. She denied any pain medication. - Diagnoses Provider Diagnoses: Back pain Discharge - Sign-Out/Discharge Documenting (check all that apply): Patient Departure - Discharge Plan Condition: Stable Disposition: HOME Prescriptions: oxyCODONE/Acetamin 5/325 MG* [Percocet 5/325 TAB*] 1 tab PO Q6H PRN #14 tab MDD 4 PRN Reason: Pain Referrals: [facility]ERR[facility] [Outside] Additional Instructions: RETURN TO THE EMERGENCY DEPARTMENT FOR CHANGING OR WORSENING SYMPTOMS. FOLLOW UP WITH YOUR JEW[facility]ERTER IN ONE DAY. FOLLOW UP WITH PCP IN 1-2 DAYS. - Attestation Statements Document Initiated by Scribe: Yes Documenting Scribe: Laura Newton Provider For Whom Ricco is Documenting (Include Credential): Alejandrina Hagan MD. Scribe Attestation: Laura Dozier, angyed for Alejandrina Hagan MD. on 03/07/18 at 1443. Consult Consult: [id number] - Spoke with Dr. Varela about the pt's condition who approved to run tests to hear heart sounds and make sure the fetus is ok. 0020 - Dr. Varela came to do a strip on the pt. The pt is not having contractions and the fetus is ok. The pt will be sent home with a dx of back pain.
[2018-03-06 23:47] LABS: ABS Basophils 0 10^3/ul (0-0.2); ABS Eosinophils 0.1 10^3/ul (0-0.6); ABS Lymphocytes 1.8 10^3/ul (1.0-4.8); ABS Monocytes 0.8 10^3/ul (0-0.8); ABS Neutrophils 8.6 10^3/ul (1.5-7.7); ABS Nucleated RBC 0 10^3/ul; Eosinophil % 0.5 % (0-6); Hematocrit 30 % (35-47); Hemoglobin 9.8 g/dl (12.0-16.0); Lymphocyte % 16.2 % (25-47); Mean Corpuscular HGB Conc 33 g/dl (31-36); Mean Corpuscular Hemoglobin 27 pg (27-31); Mean Corpuscular Volume 80 fL (80-97); Mean Platelet Volume 8.2 fL (7.4-10.4); Nucleated Red Blood Cells % 0; Platelet Count 194 10^3/ul (150-450); Red Blood Count 3.69 10^6/ul (4.00-5.40); Red Cell Distribution Width 16 % (10.5-15); White Blood Count 11.3 10^3/ul (3.5-10.8)
[2018-03-07 00:06] LABS: EGFR Non-African American 201.5 (>60)
[2018-03-07] MEDS ORDERED: Potassium Chlor TAB* 20 MEQ TAB.ER PO ONE (01:19)
[2018-03-07 01:53] VITALS: BP 124/69
== END 2018-03-07 02:11 | disposition home or self-care (01) ==
LOC: ED 22:30
DX: O26.893 Other specified pregnancy related conditions, third trimester (principal); M54.5 Low back pain; Z3A.32 32 weeks gestation of pregnancy
CPT/HCPCS: 36415; 76775; 80053; 81003; 85025; 99283; A9270-GY

== ENCOUNTER 2018-04-28 04:07 | Inpatient (IN) | payer OTHER ==
[2018-04-28] MEDS ORDERED: Lactated Ringers 1000 ML Bag* 1,000 ML IV ONE ×2 (04:43→05:21)
[2018-04-28] MEDS ORDERED: Lactated Ringers 1000 ML Bag* 1,000 ML IV SCH ×3 (05:00→07:00)
[2018-04-28] MEDS ORDERED: Penicillin G Potassium IV* 5,000,000 UNITS in NS 0.9% 100 ML* 100 ML IVPB ONE (05:00)
[2018-04-28] MEDS ORDERED: OBEPIDURAL* 250 ML EPIDURAL ONE (05:06)
[2018-04-28 05:11] LABS: ABS Basophils 0 10^3/ul (0-0.2); ABS Eosinophils 0.1 10^3/ul (0-0.6); ABS Lymphocytes 2.2 10^3/ul (1.0-4.8); ABS Monocytes 0.8 10^3/ul (0-0.8); ABS Neutrophils 7.7 10^3/ul (1.5-7.7); ABS Nucleated RBC 0 10^3/ul; Eosinophil % 0.5 %; Hematocrit 34 % (35-47); Hemoglobin 11.1 g/dl (12.0-16.0); Lymphocyte % 20.6 %; Mean Corpuscular HGB Conc 33 g/dl (31-36); Mean Corpuscular Hemoglobin 25 pg (27-31); Mean Corpuscular Volume 77 fL (80-97); Mean Platelet Volume 8.5 fL (7.4-10.4); Nucleated Red Blood Cells % 0; Platelet Count 223 10^3/ul (150-450); Red Cell Distribution Width 16 % (10.5-15); White Blood Count 10.8 10^3/ul (3.5-10.8)
[2018-04-28] MEDS ORDERED: Sodium Citrate/Citric Acid* 15 ML UDC PO PRN (05:21)
[2018-04-28] MEDS ORDERED: Famotidine TAB* 20 MG PO PRN (05:21)
[2018-04-28] MEDS ORDERED: Phenylephrine IV* 40 MCG/ML 10 ML SYRINGE IV PUSH PRN (05:21)
[2018-04-28] MEDS ORDERED: EPHEDrine (Pressors)* 50 MG/ML VIAL IV PUSH PRN (05:21)
--- NOTE | 2018-04-28 05:36 | HP ---
<Bryant Costello - Last Filed: 04/28/18 05:54> General Information - Reason for Visit SROM at 0315 to clear fluid, was not martinez initially but by the time she arrived on unit was starting to contract. - General Information Maternal Age: 17 Grav: 3 Para: 1 SAB: 0 IEA: 1 Estimated Due Date: 04/22/18 Determined By: Early Ultrasound Maternal Blood Type and Rh: A Positive - Results this Serology/RPR Result: Non-Reactive Rubella Result: Immune HBsAg Result: Negative HIV Result: Negative GBS Culture Result: Positive Past Medical History Delivery History: Hx Uncomplicated Vaginal Delivery Pertinent Past Medical History: See Records - depression/ anxiety Pertinent Past Surgical History: None Pertinent Family History: Non-Contributory - Antepartal Records Antepartal Records: Reviewed, Uncomplicated Review of Systems Constitutional: Uncomfortable CV Complaint: No Respiratory: Shortness of Breath: No Gastrointestinal: No Nausea/Vomiting, Normal Bowel Movement Genitourinary: Leaking Fluid, No Dysuria, No Bleeding Musculoskeletal: No Epigastric Pain, Contractions Neurological: No Headache, No Visual Changes Movement: Normal Exam Allergies/Adverse Reactions: Allergies No Known Allergies Allergy (Verified 03/06/18 22:38) T-98.1, P-68, R-16, BP-135/90, O2-100%, repeat BP 127/72 Lab Values - Entire Visit: Laboratory Tests 04/28/18 04/28/18 04:50 04:50 WBC 10.8 RBC 4.40 Hgb 11.1 L Hct 34 L MCV 77 L MCH 25 L MCHC 33 RDW 16 H Plt Count 223 MPV 8.5 Neut % (Auto) 70.7 Lymph % (Auto) 20.6 [place] % (Auto) 7.8 Eos % (Auto) 0.5 Baso % (Auto) 0.4 Absolute Neuts (auto) 7.7 Absolute Lymphs (auto) 2.2 Absolute Monos (auto) 0.8 Absolute Eos (auto) 0.1 Absolute Basos (auto) 0 Absolute Nucleated RBC 0 Nucleated RBC % 0 Blood Type A Positive - Measurements Height: 5 ft 2 in Weight: 58.967 kg Body Mass Index (BMI): 23.8 Pre- Weight: 43.998 kg - Exam Breast: Breast Exam Deferred CVA: No CVA Tenderness Extremities: No Edema Heart: Normal Rhythm/Heart Sounds HEENT: No Significant Findings Lungs: Clear Bilaterally Rectal: Rectal Exam Deferred Reflexes: DTR 2+ Thyroid: No Thyromegaly - Abdominal Exam Abdomen Exam: Non-Tender Abdomen Exam Comment: S<D, growth sonos have shown appropriate growth - Ultrasound/Biophysical Profile Ultrasound Status: Not Done Targeted Exam Findings See L&D Outpatient Visit Provider Note for Findings: N/A Estimated Weight: 7# Cervical Exam: 4cm Effacement: 100% Station: +1 Presenting Part: Vertex Membrane Status: SROM Amniotic Fluid Evaluation: Gross Rupture Bleeding/Discharge: None <Tereza Deal - Last Filed: 04/28/18 07:19> General Information - Reason for Visit Above text entered by Tereza Deal CNM - General Information Maternal Age: 22 Exam Vital Signs 04/28/18 06:40 Temperature 98.9 F Lab Values - Entire Visit: Laboratory Tests 04/28/18 04/28/18 04:50 04:50 WBC 10.8 RBC 4.40 Hgb 11.1 L Hct 34 L MCV 77 L MCH 25 L MCHC 33 RDW 16 H Plt Count 223 MPV 8.5 Neut % (Auto) 70.7 Lymph % (Auto) 20.6 [place] % (Auto) 7.8 Eos % (Auto) 0.5 Baso % (Auto) 0.4 Absolute Neuts (auto) 7.7 Absolute Lymphs (auto) 2.2 Absolute Monos (auto) 0.8 Absolute Eos (auto) 0.1 Absolute Basos (auto) 0 Absolute Nucleated RBC 0 Nucleated RBC % 0 Blood Type A Positive Antibody Screen Negative EFM Findings - External Monitor Findings Baseline Heart Rate: 150 External Monitor Findings: Accelerations Present, No Pattern of Variable or Late Decelerations, Variability Moderate, Baseline Stable Contractions: Regular, Strong, 45-90 Seconds Contraction Frequency: 2-3 Assessment/Plan - Assessment at 40 6/7 weeks gestation in active labor with ruptured membranes, GBS positive, no evidence of acidemia - Obstetrical Risk Factors Obstetrical Risk Factors: GBS Positive, Post-Dates - Plan Plan: Admit - Anticipate Vaginal Delivery - Date/Time of Admission Date of Admission: 04/28/18 Time of Admission: 04:34
[2018-04-28] MEDS ORDERED: OBEPIDURAL* 250 ML EPIDURAL SCH (06:00)
[2018-04-28] MEDS ORDERED: Witch Hazel PAD* JAR TOPICAL PRN (06:59)
[2018-04-28] MEDS ORDERED: Glycerin ADULT SUPP PR PRN (06:59)
[2018-04-28] MEDS ORDERED: Dibucaine 1% 28.35 GM TUBE PR PRN (06:59)
--- NOTE | 2018-04-28 07:36 | PROCNOTE ---
[facility] OB: Delivery Note - Delivery A Date of : 04/28/18 Time of : 06:09 [place] Sex: Female Weight at : 2.895 kg Score 1 Minute: 7 Score 5 Minutes: 9 Gestational Age in Weeks and Days at Delivery: 40 Weeks and 6 Days Delivery Method: Spontaneous Vaginal Labor: Spontaneous Did Patient attempt ?: N/A, No Previous Amniotic Fluid: Clear Estimated Blood Loss: 200 Anesthesia/Analgesia: CEI for Labor Delivered By: Tereza Lockhart Nursery Level of Nursery: Regular/Bedside - Perineum Perineal Injury: None/Intact Perineal Repair: None - Events Delivery Events of Note: Precipitous Delivery, Partial Course of Antibiotics - Additional Delivery Notes Additional Delivery Notes: Pt arrived to unit with ruptured membranes in active labor. IV access established and antibiotics initiated for GBS prophylaxis. Pt was progressing quickly and requested and received an epidural with adequate pain relief. Soon after, however, she began to experience increased pressure and urge to push. Upon full dilation pt pushed effectively with encouragement and soon brought the baby to . Slow controlled delivery of the head, with compound hand. Shoulders followed with next push. Infant placed on maternal abdomen, short cord noted. dried and stimulated and gave vigorous cry, FHR >100. After cord pulsation ceased cord clamped x2 and cut by pt's mother. Placenta delivered spontaneously, elias side with trailing membranes, teased out with Zandra clamp, appear intact. Fundus remained firm. Perineum intact. Bleeding minimal. Infant and mother stable at this time. Anticipate normal course.
[2018-04-28] MEDS: Ibuprofen TAB* 600 MG PO PRN ×2 (07:56→20:10)
[2018-04-28] MEDS ORDERED: Penicillin G Potassium IV* 2,500,000 UNITS in NS 0.9% 100 ML* 100 ML IVPB SCH (09:30)
[2018-04-28] MEDS: Acetaminophen TAB* 325 MG PO PRN ×2 (12:49→20:10)
[2018-04-28] MEDS: Docusate CAP* 100 MG PO SCH ×2 (12:49→20:10)
[2018-04-29 06:57] LABS: ABS Basophils 0 10^3/ul (0-0.2); ABS Eosinophils 0.2 10^3/ul (0-0.6); ABS Lymphocytes 2.7 10^3/ul (1.0-4.8); ABS Neutrophils 8.7 10^3/ul (1.5-7.7); ABS Nucleated RBC 0 10^3/ul; Eosinophil % 1.2 %; Hematocrit 28 % (35-47); Hemoglobin 9.2 g/dl (12.0-16.0); Lymphocyte % 21.2 %; Mean Corpuscular HGB Conc 33 g/dl (31-36); Mean Corpuscular Hemoglobin 26 pg (27-31); Mean Corpuscular Volume 77 fL (80-97); Mean Platelet Volume 8.5 fL (7.4-10.4); Nucleated Red Blood Cells % 0.1; Platelet Count 198 10^3/ul (150-450); Red Blood Count 3.56 10^6/ul (4.00-5.40); Red Cell Distribution Width 16 % (10.5-15); White Blood Count 12.6 10^3/ul (3.5-10.8)
[2018-04-29] MEDS: Ibuprofen TAB* 600 MG PO PRN ×2 (07:45→17:51)
[2018-04-29] MEDS: Docusate CAP* 100 MG PO SCH ×3 (07:45→20:24)
[2018-04-29] MEDS: Ferrous Gluconate TAB* 324 MG TAB PO SCH ×2 (07:47→20:24)
[2018-04-29] MEDS: Acetaminophen TAB* 325 MG PO PRN ×2 (07:47→17:53)
[2018-04-29] MEDS ORDERED: Tetan/Diph/Pertus SYR(Tdap)* 0.5 ML SYR(BOOSTRIX) use SYR IM ONE (09:00)
[2018-04-30 08:55] VITALS: BP 108/64
[2018-04-30] MEDS: Ibuprofen TAB* 600 MG PO PRN (10:25)
[2018-04-30] MEDS: Docusate CAP* 100 MG PO SCH (10:25)
[2018-04-30] MEDS: Ferrous Gluconate TAB* 324 MG TAB PO SCH (10:25)
== END 2018-04-30 12:35 | disposition home or self-care (01) | DRG 560 ==
LOC: MCHOBOUT 04:07 → MCHOB 04:34
PROVIDERS: ADMIT Midwife; ATTEND Midwife
PROC: 10E0XZZ Delivery of Products of Conception, External Approach (ICD-10-PCS; principal; 2018-04-28)
PROC: 4A1HXCZ Monitoring of Products of Conception, Cardiac Rate, External Approach (ICD-10-PCS; 2018-04-28)
DX: O48.0 Post-term pregnancy (principal); Z37.0 Single live birth; O99.824 Streptococcus B carrier state complicating childbirth; O69.3XX0 Labor and delivery complicated by short cord, not applicable or unspecified; O62.3 Precipitate labor; Z3A.40 40 weeks gestation of pregnancy; O90.81 Anemia of the puerperium
CPT/HCPCS: 36415; 85025; 86850; 86900; 86901; A9270-GY; J2540

== ENCOUNTER 2018-06-21 17:12 | Emergency (ER) | payer OTHER ==
[2018-06-21 18:27] VITALS: BP 112/71
--- NOTE | 2018-06-21 18:42 | UC ---
Complaint Female HPI - HPI Summary HPI Summary: 22 yo female presents with lower abdominal cramping. She tells me that over the last few days has been having lower abdominal cramping. She is concerned she may have a UTI or an STD. About 2 weeks ago she had unprotected sex with a usual partner, but is unsure about his sexual activity outside of their relationship. Her LMP was about 2 weeks ago and normal for her. Over the last 2- 3 days has noticed lower abdominal cramping, for which she has been taking ibuprofen with no relief. Denies vaginal discharge, bleeding, lesions, dysuria, n/v/d/c. - History Of Current Complaint Chief Complaint: UCGU Stated Complaint: STI SCREENING Time Seen by Provider: 06/21/18 18:32 Hx Obtained From: Patient Hx Last Menstrual Period: [id number] Onset/Duration: Sudden Onset Timing: Constant Severity Initially: Moderate Severity Currently: Moderate Pain Intensity: 8 Pain Scale Used: 0-10 Numeric - Allergies/Home Medications Allergies/Adverse Reactions: Allergies Allergy/AdvReac Type Severity Reaction Status Date / Time No Known Allergies Allergy Verified 06/21/18 18:27 Home Medications: Home Medications l-Norgest/E.estradiol-E.estrad [Seasonique] 1 tab PO DAILY 06/21/18 [History Confirmed 06/21/18] PMH/Surg Hx/FS Hx/Imm Hx - Additional Past Medical History Additional PMH: None Other History Of: Negative For: Hepatitis B, Anticoagulant Therapy - Surgical History Surgical History: None - Family History Known Family History: Negative: Diabetes, Renal Disease, Respiratory Disease, Seizure Disorder, Blood Disorder - Social History Lives: With Family Alcohol Use: Weekly Substance Use Type: None Substance Use Comment - Amount & Last Used: hx of marijuana Smoking Status (MU): Never Smoked Tobacco Have You Smoked in the Last Year: No Household Exposure Type: Cigarettes - Immunization History Most Recent Influenza Vaccination: Unknown Most Recent Pneumonia Vaccination: Unknown Review of Systems All Other Systems Reviewed And Are Negative: Yes Constitutional: Positive: Negative Skin: Positive: Negative Respiratory: Positive: Negative Cardiovascular: Positive: Negative Gastrointestinal: Positive: Abdominal Pain Genitourinary: Positive: Negative Motor: Positive: Negative Neurovascular: Positive: Negative Neurological: Positive: Negative Psychological: Positive: Negative Physical Exam - Summary Physical Exam Summary: GENERAL: NAD. WDWN. No pain distress. SKIN: No rashes, sores, lesions, or open wounds. NECK: Supple. Nontender. No lymphadenopathy. CHEST: CTAB. No r/r/w. No accessory muscle use. Breathing comfortably and in no distress. CV: RRR. Without m/r/g. Pulses intact. Cap refill <2seconds ABDOMEN: Soft. NTTP. No distention or guarding. No CVA tenderness. Bowel sounds present NEURO: Alert. PSYCH: Age appropriate behavior. Triage Information Reviewed: Yes Vital Signs: Initial Vital Signs Temp 98.1 F 06/21/18 18:20 Pulse 68 06/21/18 18:20 Resp 16 06/21/18 18:20 BP 112/71 06/21/18 18:20 Pulse Ox 99 06/21/18 18:20 Laboratory Tests 06/21/18 06/21/18 18:44 18:46 POC Urine Color Yellow POC Urine Clarity Clear POC Urine pH 7.0 POC Ur Specif Britt 1.020 POC Urine Protein 1+ A POC Ur Glucose (UA) Negative POC Urine Ketones 1+ A POC Urine Blood Negative POC Urine Nitrite Negative POC Urine Bilirubin Negative POC Urine Urobilinogen 1.0 POC U Leukocyte Esteras Trace A POC Ur Test Negative Vital Signs Reviewed: Yes Pelvic Exam: Positive: External Exam Normal, No Cerv. Motion Tender, No Masses, Other - Nemo Lin RN assisted with exam. Negative: Active Bleeding, Discharge , Lesions Complaint Female Dx - Course Course Of Treatment: US: IMPRESSION: 1. No acute findings. 2. Prominent uterine and adnexal vascularity, likely related to recent. . UA with trace leuks, but she is having no urinary symptoms - therefore will await culture and treat as appropriate. Cultures obtained for BV/yeast and GC/C as well as bloodwork for HIV, hepatitis, and RPR. Will be in contact with pt with results. She was not treated for any STIs today as she had no known exposure or obvious evidence of STI on exam. - Differential Dx/Diagnosis Provider Diagnosis: Pelvic cramping Discharge - Sign-Out/Discharge Documenting (check all that apply): Patient Departure All imaging exams completed and their final reports reviewed: Yes - Discharge Plan Condition: Stable Disposition: HOME Patient Education Materials: Pelvic Pain in Women (ED) Referrals: No Primary Care Phys,NOPCP [Primary Care Provider] - Additional Instructions: If you develop a fever, shortness of breath, chest pain, new or worsening symptoms - please call your PCP or go to the ED. We have obtained cultures and labwork to test for many different things that could be causing your symptoms. These results will come in over the next few days - please call to ask about your results if you have not heard from us. - Billing Disposition and Condition Condition: STABLE Disposition: Home
[2018-06-22 13:40] LABS: Hepatitis B Surface Antigen Nonreactive (Nonreactive)
[2018-06-22 14:05] LABS: Hepatitis C Antibody Nonreactive (Nonreactive)
--- NOTE | 2018-06-22 14:54 | UC ---
- Progress Note Progress Note: BV/Yeast positive for yeast. Rx for diflucan. Can let pt know. Other results pending. Course/Dx - Diagnoses Provider Diagnoses: Pelvic cramping Discharge - Sign-Out/Discharge Documenting (check all that apply): Post-Discharge Follow Up All imaging exams completed and their final reports reviewed: Yes - Discharge Plan Condition: Stable Disposition: HOME Prescriptions: Fluconazole 150 MG TAB* [Diflucan 150 MG TAB*] 150 mg PO ONCE #1 tablet Patient Education Materials: Pelvic Pain in Women (ED) Referrals: No Primary Care Phys,NOPCP [Primary Care Provider] - Additional Instructions: If you develop a fever, shortness of breath, chest pain, new or worsening symptoms - please call your PCP or go to the ED. We have obtained cultures and labwork to test for many different things that could be causing your symptoms. These results will come in over the next few days - please call to ask about your results if you have not heard from us. - Billing Disposition and Condition Condition: STABLE Disposition: Home
[2018-06-23 12:07] LABS: Neisseria gonorrhoeae (GC) RNA Negative (Negative)
[2018-06-23 12:32] LABS: Trichomonas vaginalis Result Negative (Negative)
--- NOTE | 2018-06-23 16:39 | UC ---
- Progress Note Progress Note: 06/23/2018 GC/Chlam. negative T. vaginalis Negative. Pt already Rx Fluconazole PO for positive Candidiasis No change Kourtney Ontiveros PA-C Course/Dx - Diagnoses Provider Diagnoses: Pelvic cramping Discharge - Sign-Out/Discharge Documenting (check all that apply): Patient Departure - d/c home All imaging exams completed and their final reports reviewed: Yes - Discharge Plan Condition: Stable Disposition: HOME Prescriptions: Fluconazole 150 MG TAB* [Diflucan 150 MG TAB*] 150 mg PO ONCE #1 tablet Patient Education Materials: Pelvic Pain in Women (ED) Referrals: No Primary Care Phys,NOPCP [Primary Care Provider] - Additional Instructions: If you develop a fever, shortness of breath, chest pain, new or worsening symptoms - please call your PCP or go to the ED. We have obtained cultures and labwork to test for many different things that could be causing your symptoms. These results will come in over the next few days - please call to ask about your results if you have not heard from us. - Billing Disposition and Condition Condition: STABLE Disposition: Home - Attestation Statements Provider Attestation: I was available for consult. This patient was seen by the [facility]. The patient was not presented to, seen by, or examined by me. -Allyson
== END 2018-06-21 20:21 | disposition home or self-care (01) ==
LOC: UCEAST 17:12
DX: R10.2 Pelvic and perineal pain (principal)
CPT/HCPCS: 36415; 76830; 80074; 81003; 84702; 86592; 86703; 87086; 87480; 87491; 87510; 87591; 87661; 99212; G0463

== ENCOUNTER 2018-08-11 16:45 | Emergency (ER) | payer OTHER ==
[2018-08-11 17:10] VITALS: BP 98/55
--- NOTE | 2018-08-11 17:19 | UC ---
Nausea/Vomiting/Diarrhea HPI - HPI Summary HPI Summary: ONSET THIS MORNING OF NAUSEA AND FREQUENT SOFT STOOLS. NO FEVER. NO VOMITING. NO RECENT ANTIBIOTICS OR QUESTIONABLE FOODS OR RECENT TRAVEL. - History of Current Complaint Chief Complaint: UCGI Stated Complaint: ABDOMINAL COMPLAINT Time Seen by Provider: 08/11/18 16:54 Hx Obtained From: Patient Hx Last Menstrual Period: 07/29/18 Onset/Duration: Gradual Onset, Lasting Hours, Still Present Timing: Constant Severity Initially: Mild Severity Currently: Mild Pain Intensity: 0 Pain Scale Used: 0-10 Numeric Location: Diffuse Character: Sharp Aggravating Factor(s): Nothing Alleviating Factor(s): Nothing Nausea/Vomiting Presence: Nauseated Diarrhea Presence: Yes Diarrhea Frequency: Every 1-2 hours Diarrhea Duration: 0-12 hours - Allergies/Home Medications Allergies/Adverse Reactions: Allergies Allergy/AdvReac Type Severity Reaction Status Date / Time No Known Allergies Allergy Verified 08/11/18 17:00 PMH/Surg Hx/FS Hx/Imm Hx Previously Healthy: Yes Other History Of: Negative For: Hepatitis B, Anticoagulant Therapy - Surgical History Surgical History: None - Family History Known Family History: Negative: Diabetes, Renal Disease, Respiratory Disease, Seizure Disorder, Blood Disorder - Social History Alcohol Use: None Substance Use Type: None Substance Use Comment - Amount & Last Used: hx of marijuana Smoking Status (MU): Never Smoked Tobacco Have You Smoked in the Last Year: No Household Exposure Type: Cigarettes - Immunization History Most Recent Influenza Vaccination: Unknown Most Recent Pneumonia Vaccination: Unknown Review of Systems All Other Systems Reviewed And Are Negative: Yes Constitutional: Positive: Negative Respiratory: Positive: Negative Cardiovascular: Positive: Negative Gastrointestinal: Positive: Abdominal Pain, Diarrhea, Nausea. Negative: Vomiting Genitourinary: Positive: Negative Physical Exam Triage Information Reviewed: Yes Appearance: Well-Appearing, No Pain Distress, Well-Nourished Vital Signs: Initial Vital Signs Temp 98.6 F 08/11/18 16:57 Pulse 60 08/11/18 16:57 Resp 18 08/11/18 16:57 BP 98/55 08/11/18 16:57 Pulse Ox 98 08/11/18 16:57 Vital Signs Reviewed: Yes Eyes: Positive: Conjunctiva Clear ENT: Positive: Hearing grossly normal Neck: Positive: Supple, Nontender, No Lymphadenopathy Respiratory Exam: Normal Cardiovascular Exam: Normal Abdomen Description: Positive: Soft, Other: - MILDLY TENDER DIFFUSELY. Negative : CVA Tenderness (R), CVA Tenderness (L), Distended, Guarding Bowel Sounds: Positive: Present Musculoskeletal: Positive: No Edema Neurological: Positive: Alert Psychological: Positive: Age Appropriate Behavior Skin: Negative: Rashes Naus/Vom/Diarrhea Course/Dx - Differential Dx/Diagnosis Provider Diagnosis: Gastroenteritis Condition At Discharge: Stable Discharge - Sign-Out/Discharge Documenting (check all that apply): Patient Departure All imaging exams completed and their final reports reviewed: No Studies - Discharge Plan Condition: Stable Disposition: HOME Prescriptions: Ondansetron ODT TAB* [Zofran Odt TAB*] 4 mg PO Q6H PRN #20 tab.odt PRN Reason: Nausea/Vomiting Patient Education Materials: Gastroenteritis (ED) Forms: *Work Release Referrals: [facility] [Outside] - If Needed Additional Instructions: GASTROENTERITIS: You have gastroenteritis ("intestinal flu"). This disease is usually caused by a virus. There is no specific treatment. The disease will end by itself. For now, the main danger is dehydration. Give clear liquids. Examples include Pedialyte, Gatorade, clear broth, juices, flat sodas, and jello water. Medications may be prescribed by the physician for special cases. Once tolerated, the clear liquid diet may be supplemented with rice, cereal, toast, applesauce, or bananas. GO TO [facility] WITHOUT FAIL if vomiting increases or blood appears in the bowel movement or vomitus; if you fail to improve, or if signs of dehydration occur (tongue and mouth become dry, lethargy). ENSURE ADEQUATE HYDRATION. CLEAR LIQUIDS, BLAND DIET. AVOID CAFFEINE, DAIRY, GREASY, SPICY FOODS. ONCE YOU ARE TOLERATING CLEAR LIQUIDS YOU CAN ADVANCE TO SIMPLE, BLAND FOODS. - Billing Disposition and Condition Condition: STABLE Disposition: Home
== END 2018-08-11 17:20 | disposition home or self-care (01) ==
LOC: UCEAST 16:45
DX: K52.9 Noninfective gastroenteritis and colitis, unspecified (principal)
CPT/HCPCS: 99212; G0463

== ENCOUNTER 2018-09-07 12:17 | Emergency (ER) | payer OTHER ==
[2018-09-07 12:32] VITALS: BP 106/64
--- NOTE | 2018-09-07 13:04 | UC ---
UC General HPI - HPI Summary HPI Summary: NOticed that her urine smells bad for past few days. LMP: 09/01. NO dysuria or frequency. No fever. No back pain. NO vaginal discharge or itching. Is in a monogamous relationship but does not use protecting. Has two daughters with same current partner. Meds: reviewed. Nauseated but not vomiting. - History of Current Complaint Chief Complaint: UCGU Stated Complaint: URINARY COMPLAINT Time Seen by Provider: 09/07/18 12:57 Hx Last Menstrual Period: 09/01/18 Pain Intensity: 8 - Allergy/Home Medications Allergies/Adverse Reactions: Allergies Allergy/AdvReac Type Severity Reaction Status Date / Time No Known Allergies Allergy Verified 09/07/18 12:32 Home Medications: Home Medications Pnv No.95/Ferrous Fum/Folic AC [ Vitamin & Minera 28-0.8 mg] 1 tab PO [History] PMH/Surg Hx/FS Hx/Imm Hx Previously Healthy: Yes Other History Of: Negative For: Hepatitis B, Anticoagulant Therapy - Surgical History Surgical History: None - Family History Known Family History: Negative: Diabetes, Renal Disease, Respiratory Disease, Seizure Disorder, Blood Disorder - Social History Alcohol Use: Rare Substance Use Type: None Substance Use Comment - Amount & Last Used: hx of marijuana Smoking Status (MU): Never Smoked Tobacco Have You Smoked in the Last Year: No Household Exposure Type: Cigarettes - Immunization History Most Recent Influenza Vaccination: Unknown Most Recent Pneumonia Vaccination: Unknown Review of Systems All Other Systems Reviewed And Are Negative: Yes Genitourinary: Positive: Negative Physical Exam Triage Information Reviewed: Yes Appearance: Well-Appearing Vital Signs: Initial Vital Signs Temp 98.1 F 09/07/18 12:27 Pulse 62 09/07/18 12:27 Resp 18 09/07/18 12:27 BP 106/64 09/07/18 12:27 Pulse Ox 99 09/07/18 12:27 ENT: Positive: Tonsillar swelling Neck: Positive: Supple, Nontender Respiratory: Positive: Lungs clear, Normal breath sounds Cardiovascular: Positive: RRR, No Murmur Abdomen Description: Positive: Nontender, Soft, Other: - No CVA tenderness Course/Dx - Course Course Of Treatment: This is a 22 yr old with c/o urine smells bad A U/A pyuria Negative Patient declined blood tests for STIs Plan We will contact you if your urine STI testing is positive We will contact you if you need to change antibiotics Start Bactrim 2x/day for 3 days If symptoms persist or worsen, follow up with your primary care physician or return to urgent care Continue to drink plenty of fluid - Diagnoses Provider Diagnosis: UTI (urinary tract infection) Discharge - Sign-Out/Discharge Documenting (check all that apply): Patient Departure All imaging exams completed and their final reports reviewed: No Studies - Discharge Plan Condition: Good Disposition: HOME Patient Education Materials: Urinary Tract Infection in Women (ED) Referrals: No Primary Care Phys,NOPCP [Primary Care Provider] - - Billing Disposition and Condition Condition: GOOD Disposition: Home
[2018-09-08 12:15] LABS: Neisseria gonorrhoeae (GC) RNA Negative (Negative)
--- NOTE | 2018-09-09 19:17 | UC ---
- Progress Note Progress Note: 09/09/2018 Urine culture positive for e.Coli. Pt Rx Bactrim PO Final reports shows sensitive for Bactrim PO No change Kourtney Nathan PA-C Course/Dx - Diagnoses Provider Diagnoses: UTI (urinary tract infection) Discharge - Sign-Out/Discharge Documenting (check all that apply): Post-Discharge Follow Up All imaging exams completed and their final reports reviewed: No Studies - Discharge Plan Condition: Good Disposition: HOME Prescriptions: Sulfamethox/Trimethoprim DS* [Bactrim DS 800/160 TAB*] 1 tab PO BID #6 tab Patient Education Materials: Urinary Tract Infection in Women (ED) Referrals: No Primary Care Phys,NOPCP [Primary Care Provider] - Additional Instructions: We will contact you if your urine STI testing is positive We will contact you if you need to change antibiotics Start Bactrim 2x/day for 3 days for urinary tract infection If symptoms persist or worsen, follow up with your primary care physician or return to urgent care Continue to drink plenty of fluid - Billing Disposition and Condition Condition: GOOD Disposition: Home
== END 2018-09-07 13:20 | disposition home or self-care (01) ==
LOC: UCEAST 12:17
DX: N39.0 Urinary tract infection, site not specified (principal)
CPT/HCPCS: 81003; 84702; 87077; 87086; 87186; 87491; 87591; 99212; G0463

== ENCOUNTER 2018-09-10 20:26 | Emergency (ER) | payer OTHER ==
[2018-09-10 23:02] LABS: Rapid Strep Molecular Negative (Negative)
[2018-09-10] MEDS ORDERED: Lidocaine 2% VISCOUS* 15 ML UDC PO ONE (23:10)
[2018-09-10] MEDS ORDERED: Dexamethasone Oral Solution* 1 MG/ML 10 ML UDC (10 MG) PO ONE (23:10)
--- NOTE | 2018-09-10 23:26 | ED ---
Throat Pain/Nasal Congestion - HPI Summary HPI Summary: 22 year old female presents with sore throat for the last week. She states that symptoms have been getting worse. She states she's been having a dry cough. She states feels fatigued. No abdominal pain. No nausea vomiting. She admits to dysuria, urgency and frequency that is improving as is currently being treated for uti. no flank pain. Denies any fevers. Has no medical conditions. No abnormal vaginal discharge. - History of Current Complaint Chief Complaint: EDThroatPain Time Seen by Provider: 09/10/18 22:57 - Allergies/Home Medications Allergies/Adverse Reactions: Allergies Allergy/AdvReac Type Severity Reaction Status Date / Time No Known Allergies Allergy Verified 09/07/18 12:32 PMH/Surg Hx/FS Hx/Imm Hx Endocrine/Hematology History: Denies: Hx Anticoagulant Therapy, Hx Diabetes, Hx Thyroid Disease Cardiovascular History: Denies: Hx Congestive Heart Failure, Hx Hypertension, Hx Pacemaker/ICD Respiratory History: Denies: Hx Asthma, Hx Chronic Obstructive Pulmonary Disease (COPD) GI History: Reports: Hx Gastroesophageal Reflux Disease - "years ago" - no problems since, Other GI Disorders - hemorrhoids Denies: Hx Ulcer History: Denies: Hx Dialysis, Hx Kidney Infection, Hx Kidney Stones, Hx Renal Disease Neurological History: Denies: Hx Dementia, Hx Seizures Psychiatric History: Reports: Hx Eating Disorder Denies: Hx Anxiety, Hx Depression, Hx Bipolar Disorder, Hx Substance Abuse - Immunization History Date of Tetanus Vaccine: unknown Date of Influenza Vaccine: NO Infectious Disease History: No Infectious Disease History: Reports: 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, in her stomach Denies: Hx Hepatitis, Hx Human Immunodeficiency Virus (HIV), Traveled Outside the [place] in Last 30 Days - Family History Known Family History: Negative: Diabetes, Renal Disease, Respiratory Disease, Seizure Disorder, Blood Disorder - Social History Alcohol Use: Rare Hx Substance Use: No Substance Use Type: Reports: None Substance Use Comment - Amount & Last Used: hx of marijuana Hx Tobacco Use: No Smoking Status (MU): Never Smoked Tobacco Have You Smoked in the Last Year: No Review of Systems Negative: Fever Positive: Sore Throat Negative: Chest Pain Negative: Shortness Of Breath All Other Systems Reviewed And Are Negative: Yes Physical Exam Triage Information Reviewed: Yes Vital Signs On Initial Exam: Initial Vitals Temp Pulse Resp BP Pulse Ox 98.9 F 95 14 132/77 98 09/10/18 20:49 09/10/18 20:49 09/10/18 20:49 09/10/18 20:49 09/10/18 20:49 Vital Signs Reviewed: Yes Appearance: Positive: Well-Appearing Skin: Positive: Warm, Dry Head/Face: Positive: Normal Head/Face Inspection Eyes: Positive: Normal, EOMI, DANIELA, Conjunctiva Clear ENT: Positive: Pharyngeal erythema, TMs normal, Tonsillar swelling, Uvula midline, Other - soft palate symmetric. Negative: Tonsillar exudate, Trismus, Muffled voice Neck: Positive: Supple, Nontender, No Lymphadenopathy Respiratory/Lung Sounds: Positive: Clear to Auscultation, Breath Sounds Present Cardiovascular: Positive: Normal, RRR Abdomen Description: Positive: Nontender, Soft Bowel Sounds: Positive: Present Musculoskeletal: Positive: Normal Neurological: Positive: Normal Psychiatric: Positive: Normal Diagnostics - Vital Signs Vital Signs Temp Pulse Resp BP Pulse Ox 09/10/18 20:49 98.9 F 95 14 132/77 98 - Laboratory Lab Results: Lab Results 09/10/18 Range/Units 22:44 Group A Strep Rapid Negative (Negative) Lab Statement: Any lab studies that have been ordered have been reviewed, and results considered in the medical decision making process. EENT Course/Dx - Course Course Of Treatment: 22 year old female presents with sore throat for the last week. She states that symptoms have been getting worse. She states she's been having a dry cough. She states feels fatigued. No abdominal pain. No nausea vomiting. She admits to dysuria, urgency and frequency that is improving as is currently being treated for uti. no flank pain. Denies any fevers. Has no medical conditions. No abnormal vaginal discharge. On exam pharynx erythematous. Uvula midline. Soft palate symmetric. +3 tonsils. abd soft nontender. Strep is negative. Gave Decadron and lidocaine feeling better. will prescribe such. patient understand and agrees with plan. - Differential Diagnoses Differential Diagnoses: Pharyngitis, Tonsilitis, Other - uti - Diagnoses Provider Diagnoses: Pharyngitis Discharge - Sign-Out/Discharge Documenting (check all that apply): Patient Departure Patient Received Moderate/Deep Sedation with Procedure: No - Discharge Plan Condition: Good Disposition: HOME Prescriptions: Dexamethasone TAB* [Decadron TAB*] 4 mg PO DAILY #4 tab Magic Mouth Was-TRACY/MAAL/LIDO* 5 ml SWISH SWAL QID #100 ml Patient Education Materials: Pharyngitis (ED) Referrals: [facility] [Outside] Sina Linda MD [Medical Doctor] - Additional Instructions: Magic mouthwash 5ml swish and spit can use 4x a day Take steroid once a day for 5 days Take Tylenol or ibuprofen for pain every 6 hours Use saline spray in nose as much as needed for nasal congestion Can gargle salt water Can use cough drops or products such as cloraseptic spray Establish care with primary care physician Return to ED if develop any new or worsening symptoms - Billing Disposition and Condition Condition: GOOD Disposition: Home
[2018-09-11 01:02] VITALS: BP 113/66
== END 2018-09-11 00:35 | disposition home or self-care (01) ==
LOC: ED 20:26
DX: J02.9 Acute pharyngitis, unspecified (principal)
CPT/HCPCS: 87651; 99282

== ENCOUNTER → 2018-10-17 14:47 | Emergency (ER) | payer OTHER ==
[2018-10-17 14:57] VITALS: BP 113/66
== END | disposition left against medical advice (07) ==
LOC: ED 14:47
DX: Z53.21 Procedure and treatment not carried out due to patient leaving prior to being seen by health care provider (principal)
CPT/HCPCS: 99282

== ENCOUNTER → 2018-11-19 07:16 | Day surgery (SDC) | payer OTHER ==
[~2018-11-19 07:16] MED LIST: Buffered Lidocaine 1% SYRIN* 1 ML/SYRINGE INTRADERM ONE; Dexamethasone IV* 4 MG/ML 1 ML (4 MG) ONE; Famotidine IV* 10 MG/ML 2 ML (20 mg) IV ONE; Famotidine IV* 10 MG/ML 2 ML (20 mg) ONE; HYDROcodone/ACET. 7.5/325 LIQ* 15 ML UDC ONE; Lactated Ringers 1000 ML Bag* 1,000 ML IV SCH; Lidocaine 2% PF * 5 ML VIAL ONE; Midazolam* 1 MG/ML 5 ML VIAL (5 MG) ONE; Naloxone* 0.4 MG/ML 1 ML VIAL IV PRN; Ondansetron INJ* 2 MG/ML VIAL IV PRN; Ondansetron INJ* 2 MG/ML VIAL ONE; Propofol* 10 MG/ML 20 ML BTL ONE; fentaNYL* 50 MCG/ML 2 ML VIAL (100 MCG VIAL) IV PRN; fentaNYL* 50 MCG/ML 2 ML VIAL (100 MCG VIAL) ONE
[2018-11-19 10:48] VITALS: BP 125/82
--- NOTE | 2018-11-19 10:48 | OP ---
DATE OF OPERATION: 11/19/18 - SDS DATE OF : 89 ATTENDING SURGEON: Sina Linda MD. DRILL SERGEANT: None. ANESTHESIA: General. PRE-OP DIAGNOSIS: Chronic tonsillitis. POST-OP DIAGNOSIS: Chronic tonsillitis. OPERATIVE PROCEDURE: Tonsillectomy. ESTIMATED BLOOD LOSS: Negligible. SPECIMENS: Right and left tonsils to pathology. INDICATION: This is a 23-year-old woman with symptoms of chronic tonsillitis who presents for elective tonsillectomy. DESCRIPTION OF PROCEDURE: She was brought to the operating room, general anesthesia was induced, and the patient was orally intubated. The patient was draped and the table turned to 90 degrees and a time-out was performed. A McIvor mouth gag was used to facilitate exposure of the oropharynx and was suspended from the Masters stand. The right tonsil was addressed first. It was grasped with the straight Allis forceps, retracted medially, and dissected free of its fossa with the coblation device at a setting of 7 and 3. There was no bleeding. Once the right tonsil was removed, attention was turned to the left side. Again, the left tonsil was grasped with the straight Allis forceps, retracted medially, and dissected free of its fossa with a coblation device without any bleeding. Once the tonsils were out, the superior and inferior pole regions were prophylactically cauterized using the bipolar function on the device at a setting of 5. An orogastric tube was then passed into the stomach. The stomach consents were evacuated. The mouth gag was then let down for a period of a minute; it was opened again. There was no evidence of active bleeding. The patient was then extubated and delivered to the PACU. [id number]/[facility] #: [id number] MTDD
== END | disposition home or self-care (01) ==
LOC: OR 07:16
PROVIDERS: ATTEND Otolaryngology
DX: J35.01 Chronic tonsillitis (principal); K21.9 Gastro-esophageal reflux disease without esophagitis; K29.70 Gastritis, unspecified, without bleeding; F41.0 Panic disorder [episodic paroxysmal anxiety]; J30.89 Other allergic rhinitis
CPT/HCPCS: 81025; 88304; J1100; J2250; J2405; J2704; J3010

== ENCOUNTER 2019-06-29 17:57 | Emergency (ER) | payer OTHER ==
[2019-06-29 18:22] VITALS: BP 96/57
--- NOTE | 2019-06-29 18:48 | UC ---
Complaint Female HPI - HPI Summary HPI Summary: 23 yo woman with persistent vaginal discharge; she had onset of symptoms about 2 weeks ago. She was assessed x 5 days ago at [facility], treated with rocephin and azithromycin, and discharged. When she called to check in a few days later, was advised that Chlamydia and GC testing was negative. She now has increasing vaginal discharge, labial swelling, and itch, consistent with past yeast infection. No change in partner, no abdominal pain, does have pain with passage of urine. No fever, chills or myalgias. - History Of Current Complaint Chief Complaint: UCGU Stated Complaint: UTI Time Seen by Provider: 06/29/19 18:40 Hx Obtained From: Patient Hx Last Menstrual Period: 06/01/19 Onset/Duration: Gradual Onset, Lasting Days Timing: Constant Severity Initially: Mild Severity Currently: Moderate Pain Intensity: 9 Character: Burning Aggravating Factor(s): Urination, Other - wiping Associated Signs And Symptoms: Positive: Genital Swelling - mild labial swelling. - Risk Factors Ectopic Risk Factor: Negative Ovarian Torsion Risk Factor: Negative - Allergies/Home Medications Allergies/Adverse Reactions: Allergies Allergy/AdvReac Type Severity Reaction Status Date / Time No Known Allergies Allergy Verified 06/29/19 18:14 Home Medications: Home Medications Fluconazole 150 MG (NF) [Diflucan 150 mg (NF)] 150 mg PO ONCE #1 tab 06/29/19 [ Rx] Nitrofurantoin Macrocrystal [Nitrofurantoin] 100 mg PO BID #14 capsule 06/29/19 [Rx] PMH/Surg Hx/FS Hx/Imm Hx Previously Healthy: Yes Other History Of: Negative For: Hepatitis B, Anticoagulant Therapy - Surgical History Surgical History: None Surgery Procedure, Year, and Place: I&D-no anesthesia - Family History Known Family History: Negative: Diabetes, Renal Disease, Respiratory Disease, Seizure Disorder, Blood Disorder - Social History Occupation: Employed Part-time, Student Alcohol Use: None Substance Use Type: None Substance Use Comment - Amount & Last Used: hx of marijuana Smoking Status (MU): Never Smoked Tobacco Have You Smoked in the Last Year: No Household Exposure Type: Cigarettes - Immunization History Most Recent Influenza Vaccination: Unknown Most Recent Pneumonia Vaccination: Unknown Review of Systems All Other Systems Reviewed And Are Negative: Yes Constitutional: Positive: Negative Skin: Positive: Negative Eyes: Positive: Negative ENT: Positive: Negative Respiratory: Positive: Negative Cardiovascular: Positive: Negative Gastrointestinal: Positive: Negative Genitourinary: Positive: Dysuria, Vaginal/Penile Discharge. Negative: Vaginal/ Penile Burning Motor: Positive: Negative Neurovascular: Positive: Negative Musculoskeletal: Positive: Negative Neurological/Mental Status: Positive: Negative Psychological: Positive: Negative Is Patient Immunocompromised?: No Physical Exam Triage Information Reviewed: Yes Appearance: Well-Appearing, No Pain Distress, Thin Vital Signs: Initial Vital Signs Temp 99 F 06/29/19 18:15 Pulse 59 06/29/19 18:15 Resp 16 06/29/19 18:15 BP 96/57 06/29/19 18:15 Pulse Ox 100 06/29/19 18:15 ENT: Positive: Pharynx normal Neck: Positive: Supple, Nontender, No Lymphadenopathy Respiratory: Positive: Lungs clear, Normal breath sounds Cardiovascular: Positive: RRR, No Murmur Abdomen Description: Positive: Nontender, No Organomegaly, Soft Pelvic Exam: Positive: Other - swelling of the outer labia, with moderate white to creamy vaginal discharge without odor.. Negative: Ulcers Musculoskeletal Exam: Normal Neurological Exam: Normal Psychological Exam: Normal Skin Exam: Normal Diagnostics - Laboratory Lab Results: UA with 3+ wbc, rbc. Complaint Female Dx - Course Course Of Treatment: Discussed past treatment; her symptoms are most consistent with yeast vaginitis at this time. Urine is cloudy and tests positve for wbc esterace. Suggested treatment. Affirm testing obtained. Fluconazole given - Differential Dx/Diagnosis Differential Diagnosis/HQI/PQRI: Sexually Transmitted Disease, Urinary Tract Infection, Other - vaginitis Provider Diagnosis: Vaginitis Discharge ED - Sign-Out/Discharge Documenting (check all that apply): Patient Departure All imaging exams completed and their final reports reviewed: No Studies - Discharge Plan Condition: Stable Disposition: HOME Prescriptions: Fluconazole 150 MG (NF) [Diflucan 150 mg (NF)] 150 mg PO ONCE #1 tab Nitrofurantoin Macrocrystal [Nitrofurantoin] 100 mg PO BID #14 capsule Patient Education Materials: Urinary Tract Infection in Women (ED), Vaginitis ( ED) Referrals: Husam Benedict MD [Primary Care Provider] - Additional Instructions: Take single dose of fluconazole to treat suspected yeast infection. In addition , I suggest over the counter Monistat to relieve the swelling and discomfort. This can safely be used in combination with the fluconazole. Affirm testing has been sent, and if a change in treatment is needed, you will be called tomorrow evening or on Thursday. Urine infection is also suspected; please begin use of nitrofurantoin. - Billing Disposition and Condition Condition: STABLE Disposition: Home
[2019-06-30 12:25] LABS: HIV 4th Generation Nonreactive (Nonreactive)
--- NOTE | 2019-07-01 15:07 | UC ---
- Progress Note Progress Note: Urine culture with Group B strep Recommend stopping macrobid and starting Keflex for 5 days - sent to pharm Course/Dx - Diagnoses Provider Diagnoses: Vaginitis Discharge ED - Sign-Out/Discharge Documenting (check all that apply): Post-Discharge Follow Up All imaging exams completed and their final reports reviewed: No Studies - Discharge Plan Condition: Stable Disposition: HOME Prescriptions: Cephalexin CAP* [Keflex CAP*] 500 mg PO BID #10 cap Fluconazole 150 MG (NF) [Diflucan 150 mg (NF)] 150 mg PO ONCE #1 tab Nitrofurantoin Macrocrystal [Nitrofurantoin] 100 mg PO BID #14 capsule Patient Education Materials: Urinary Tract Infection in Women (ED), Vaginitis ( ED) Referrals: Husam Benedict MD [Primary Care Provider] - Additional Instructions: Take single dose of fluconazole to treat suspected yeast infection. In addition , I suggest over the counter Monistat to relieve the swelling and discomfort. This can safely be used in combination with the fluconazole. Affirm testing has been sent, and if a change in treatment is needed, you will be called tomorrow evening or on Thursday. Urine infection is also suspected; please begin use of nitrofurantoin. - Billing Disposition and Condition Condition: STABLE Disposition: Home
== END 2019-06-29 19:45 | disposition home or self-care (01) ==
LOC: UCEAST 17:57
DX: N76.0 Acute vaginitis (principal); R30.0 Dysuria
CPT/HCPCS: 36415; 81003; 84702; 87077; 87086; 87389; 87480; 87510; 87660; 99212; G0463